=== PATIENT | female | born 1980 | race Caucasian/White ===

== ENCOUNTER 2023-02-21 19:09 | Inpatient (IN) | payer SELFPAY ==
[2023-02-21 19:25] VITALS: BP 166/82; PULSE 109; RESP 22; TEMP 36.9; O2SAT 88; BMI 62.1
--- NOTE | 2023-02-21 19:34 | ED_ITS ---
HPI - SOB/Dyspnea 2 General: Chief Complaint: Shortness of Breath/Dyspnea Stated Complaint: sob, Time Seen by Provider: 02/21/23 19:30 History of Present Illness: HPI Narrative: 43-year-old female who present s emergency room with shortness of breath for the past 4 weeks. Patient reveals that she is a smoker and smokes about a pack a day. Reveals increased shortness of breath with laying flat, walking, going up the steps. Patient reveals some dry cough denies coughing up blood or vomiting blood. Patient has any history of CHF, COPD, fever, chills, nausea or vomiting. Upon present emergency room patient was found with hypoxic satting 88% on room air. Patient revealed some chest tightness but denies any sick contact or recent foreign travel. Associated symptoms: Reports chest pain and orthopnea; Deny abdominal pain, dizziness, fever(s), hemoptysis, nausea, palpitations or vomiting Review of Systems 2 General: Reports: 10 or more systems reviewed and unremarkable except in HPI and below Const: Reports: change in sleep pattern and snoring; Denies: fever(s), chills, body aches or change in appetite Card: Reports: chest pain, dyspnea on exertion and orthopnea; Denies: palpitations Resp: Reports: dyspnea and non-productive cough; Denies: wheezing, stridor, pain on inspiration, change in phlegm color or hemoptysis GI: Denies: abdominal pain, nausea, vomiting, hematemesis, coffee ground emesis or dysphagia : Denies: flank pain, difficulty voiding or dysuria Neuro: Denies: headache(s), numbness in extremities, sensory changes, lack of coordination, difficulty walking, dizziness or vertigo Physical Exam 2 Const: COMMON NORMALS: no acute distress and patient oriented x3 GENERAL APPEARANCE: not in distress, not disheveled, not lethargic, not ill appearing and not frail appearing NUTRITIONAL APPEARANCE: obese O RIENTATION/CONSCIOUSNESS: not lethargic HENMT: COMMON NORMALS: normocephalic, atraumatic, hearing grossly normal bilaterally, external ears normal, EAC's normal, TM's normal bilaterally, Normal external nose present, Normal nasal mucous membranes and turbinates present, moist oral mucous membranes, oropharynx normal, dentition normal and gingiva normal HEAD & SCALP: normocephalic and atraumatic NOSE: Normal external nose present and Normal nasal mucous membranes and turbinates present E XTERNAL EAR: Yes external ears normal EXTERNAL AUDITORY CANAL: EAC's normal TYMPANIC MEMBRANE: TM's normal bilaterally Neck/C-Spine: COMMON NORMALS: full ROM, no lymphadenopathy, supple, no meningeal signs, no JVD, Thyroid normal and No carotid bruits THYROID: T hyroid normal Chest: COMMONS NORMALS: normal inspection of the chest, normal palpation of entire chest wall, normal inspection of the breasts and normal palpation of the breasts CHEST: No Sternal flail present, No mass, No sinus tracts, No tenderness, No laceration and No abrasion Breast/axilla inspection: Yes normal inspection of the breasts BREAST/AXILLA PALPATION: Yes normal palpation of the breasts Resp: EFFORT & INSPECTION: Yes able to speak in complete sentences, Yes respiratory distress, No pursed lip breathing, No labored, No grunting, No stridor, No Actively coughing, No retractions and No uses accessory muscles A USCULTATION: wheezes and diminished lung sounds Cardio: COMMON NORMALS: no JVD, regular rate, regular rhythm, S1 normal heart sound present, S2 normal heart sound present, No gallops present (Cardio), No clicks present (Cardio), No murmurs present (Cardio), No rub (Cardio) and Peripheral pulses 2+ throughout RATE: regular rate and tachycardic RHYTHM: regular rhythm HEART SOUNDS: S1 normal heart sound present and S2 normal heart sound present PERIPHERAL PULSES: Peripheral pulses 2+ throughout Extremity: OTHER: Trace edema lower extremities calf tenderness Neuro: COMMON NORMALS: patient oriented x3 SENSORIUM/ORIENTATION: No lethargic MENINGEAL SIGNS: Yes no meningeal signs Course 2 Reevaluation(s): Reevaluation #1: Upon reassessment patient improved significantly with current treatment. Consultations: Consultation #1: I discussed patient with the hospitalist. Patient admitted for further evaluation and treatment. Vital Signs: Vital signs: Vital Signs Temperature 98.2 F 02/22/23 03:42 Pulse Rate 89 02/22/23 03:42 Respiratory Rate 17 02/22/23 03:42 Blood Pressure 150/70 02/22/23 03:42 Pulse Oximetry 93 02/22/23 03:42 Oxygen Delivery Me thod Heated High Flow 02/22/23 03:42 Oxygen Flow Rate 6 02/22/23 03:42 Fraction of Inspir ed Oxygen 5 02/21/23 21:58 MDM - SOB/Dyspnea Medical Decision Making Patient was made comfortable emergency room and had extensive workup with CBC, CMP, troponin, D-dimer chest x-ray CT scan EKG. Discussed the x-ray and lab finding with the patient. Patient did improve slightly with current treatment which included oxygen by nasal cannula, steroid, Lasix and IV antibiotics. I discussed patient with the hospitalist. Will admit for further evaluation and treatment. I discussed care and treatment with daughter at bedside. Differential Diagnosis Likely acute exacerbation of chronic obstructive airways disease, congestive heart failure, community acquired pneumonia, asthma with exacerbation and pulmonary embolism Lab Data 02/22/23 01:40 02/22/23 01:40 Labs/Radiology: Radiology Impressions Chest X-Ray 02/21/23 19:35 IMPRESSION: 1. Diffuse ground-glass opacities suspected in both lungs. This could represent pulmonary edema, pneumonia, or hypersensitivity pneumonitis. Chest CTA 02/21/23 20:28 IMPRESSION: 1. No evidence for pulmonary embolus. 2. Mild diffuse ground-glass opacities in both lungs. This could represent pulmonary edema, atypical pneumonia, or hypersensitivity pneumonitis. 3. 2.9 cm indeterminate low-density left adrenal nodule. Non-emergent adrenal CT is recommended. (Reference: Kee) References: Kee BECKER, et al. Management of Incidental Adrenal Masses: A White Paper of the ACR Incidental Findings Committee. J Am Jessenia Radiol. 2017;14(8):1183-7809. Laboratory Results WBC 9.75 10^3/uL (3.29-11.43) 02/21/23 19:30 RBC 5.51 10^6/uL (3.85-5.65) 02/21/23 19:30 Hgb 17.60 g/dL (11.27-16.99) H 02/21/23 19:30 Hct 55.0 % (36-47) H 02/21/23 19:30 MCV 99.8 fl (85-98) H 02/21/23 19:30 MCH 31.9 pg (27-33) 02/21/23 19:30 MCHC 32.0 g/dL (30-55) 02/21/23 19:30 RDW 15.7 % (12.1-15.1) H 02/21/23 19:30 Plt Count 292 10^3/cmm (157-399) 02/21/23 19:30 MPV 9.5 fL (7.4-10.4) 02/21/23 19:30 Neut % (Auto) 78.3 % 02/21/23 19:30 Lymph % (Auto) 15.0 % 02/21/23 19:30 [place] % (Auto) 4.7 % 02/21/23 19:30 Eos % (Auto) 1.2 % 02/21/23 19:30 Baso % (Auto) 0.3 % 02/21/23 19:30 Neut # (Auto) 7.63 10^3/uL (1.8-7.7) 02/21/23 19:30 Lymph # (Auto) 1.5 10^3/uL (0.8-4.8) 02/21/23 19:30 [place] # (Auto) 0.5 10^3/uL (0.2-0.9) 02/21/23 19:30 Eos # (Auto) 0.1 10^3/uL (0.0-0.8) 02/21/23 19:30 Baso # (Auto) 0.0 10^3/uL (0.0-0.1) 02/21/23 19: Nucleated RBC % (auto) 0.2 % 02/21/23 19: Nucleated RBCs # 0.0 /100WBC 02/21/23 19:30 Specimen Type Arterial 02/21/23 19:35 Sample Site Radial, right 02/21/23 19:35 ABG pH 7.43 (7.35-7.45) 02/21/23 19:35 ABG pCO2 48.1 mmHg (35-45) H 02/21/23 19:35 ABG pO2 46.7 mmHg (80.0-100.0) L 02/21/23 19:35 ABG HCO3 32.2 mmol/L (22-26) H 02/21/23 19:35 ABG Base Excess 6.4 mmol/L (-2.0-2.0) H 02/21/23 19:35 Noel Test Pos 02/21/23 19:35 Hematocrit 52.1 % (37-47) H 02/21/23 19:35 Hgb O2 Saturation 77.3 % (95-100) L 02/21/23 19:35 Carboxyhemoglobin 11.9 %THgb (0.4-20.1) 02/21/23 19:35 Methemoglobin 0.1 % (0.4-1.5) L 02/21/23 19:35 Total Hemoglobin 17.0 g/dL (12-16) H 02/21/23 19:35 O2 Delivery Device Room air 02/21/23 19:35 Trauma Counsellor ID [email or web address] 02/21/23 19:35 Sodium 139 mmol/L (136-145) 02/21/23 19:30 Potassium 4.6 mmol/L (3.5-5.1) 02/21/23 19:30 Chloride 98 mmol/L (98-107) 02/21/23 19:30 Carbon Dioxide 30 mmol/L (22-29) H 02/21/23 19:30 Anion Gap 15.6 (5-19) 02/21/23 19:30 BUN 7 mg/dL (6-20) 02/21/23 19:30 Creatinine 0.8 mg/dL (0.5-0.9) 02/21/23 19:30 GFR Calculation 77.6 mL/min (90-130) L 02/21/23 19:30 Glucose 109 mg/dL (65-115) 02/21/23 19:30 Calculated Osmolality 287 mOsm/kg (285-295) 02/21/23 19:30 Calcium 9.0 mg/dL (8.5-10.5) 02/21/23 19:30 Total Bilirubin 0.4 mg/dL (0.15-1.2) 02/21/23 19:30 AST 26 U/L (0-32) 02/21/23 19:30 ALT 40 U/L (0-33) H 02/21/23 19:30 Alkaline Phosphatase 127 U/L (35-105) H 02/21/23 19:30 Troponin T Baseline 11 ng/L (0-10) H 02/21/23 19:30 Troponin T 120 Minute 11.19 ng/L (0-10) H 02/21/23 21:25 Delta Troponin T 0.19 ABS# (0-10) 02/21/23 21:25 NT-Pro-B Natriuret Pep 196 pg/mL (0-125) H 02/21/23 19:30 Total Protein 6.6 g/dL (6.6-8.7) 02/21/23 19:30 Albumin 3.5 g/dL (3.5-5.2) 02/21/23 19:30 Globulin 3.1 g/dL (1.3-4.6) 02/21/23 19:30 Random Cortisol 12.73 ug/dL (2.47-19.5) 02/21/23 19:30 Coronavirus 229E (PCR) Not detected (NOT DETECT) 02/21/23 22:14 SARS-CoV-2 (PCR) Not detected (NOT DETECT) 02/21/23 22:14 XR interpretation done by ED provider, pending radiology final review EKG Data EKG 1: Interpretation: Sinus tachycardia rate of 101 AL interval 161 QT [address] elevation. Nonspecific ST changes. ABG Data ABG Interpretation 1: ABG results: pH 7.4 pCO2 48.1, pO2 46.7 I personally reviewed and interpreted this ABG as follows: Critical Care Time 2 Critical Care Time: Critical Care Time: Yes Total Critical Care Time: 45 Attestation: Time spent discussing patient with the family, discussed patient with the hospitalist. Time spent reevaluating patient on multiple occasion after treatment. Time spent reviewing past medical history and records. Discharge Plan Discharge Patient Disposition: Admitted As Inpatient Admit Provider: Bettina Cleary Clinical Impression: Hypoxia, Pneumonitis Condition: Stable Coding Level of Care Code ED Freight Service Inspector for Chg Fwsammie
--- NOTE | 2023-02-21 19:35 | XRR_ITS ---
PROCEDURE INFORMATION: Exam: XR Chest Exam date and time: 02/21/2023 7:42 PM Age: 43 years old Clinical indication: Shortness of breath; Additional info: As of breath TECHNIQUE: Imaging protocol: Radiologic exam of the chest. Views: 1 view. COMPARISON: No relevant prior studies available. FINDINGS: Lungs: Diffuse ground-glass opacities suspected in both lungs. The images are underpenetrated due to the patient's large body habitus. Pleural spaces: Unremarkable. No pleural effusion. No pneumothorax. Heart/Mediastinum: Mild cardiomegaly. Bones/joints: Unremarkable. XR/XR chest 1V portable [id number] IMPRESSION: 1. Diffuse ground-glass opacities suspected in both lungs. This could represent pulmonary edema, pneumonia, or hypersensitivity pneumonitis.
[2023-02-21 19:43] LABS: ABG PCO2 48.1 mmHg (35-45); ABG PH Result 7.43 (7.35-7.45); Arterial Blood Gas Hematocrit 52.1 % (37-47); Base Excess ABG 6.4 mmol/L (-2.0-2.0); Blood Gas Allen Test Pos; Blood Gas Sample Site Radial, right; Blood Gas Sample Type Arterial; Carboxyhemoglobin 11.9 %THgb (0.4-20.1); HCO3 ABG 32.2 mmol/L (22-26); HGB O2 Sat 77.3 % (95-100); Methemoglobin 0.1 % (0.4-1.5); Oxygen Device ROOM AIR; PO2 ABG 46.7 mmHg (80.0-100.0)
[2023-02-21 19:52] LABS: Basophils % 0.3 %; Eosinophils # 0.1 10^3/uL (0.0-0.8); Eosinophils % 1.2 %; Lymphocytes # 1.5 10^3/uL (0.8-4.8); Mean Corpuscular Hemoglobin 31.9 pg (27-33); Mean Corpuscular Volume 99.8 fl (85-98); Mean Platelet Volume 9.5 fL (7.4-10.4); Monocytes # 0.5 10^3/uL (0.2-0.9); Monocytes % 4.7 %; Neutrophils # 7.63 10^3/uL (1.8-7.7); Neutrophils % 78.3 %; Nucleated Red Blood Cells % 0.2 %; Platelet Count 292 10^3/cmm (157-399); Red Blood Count 5.51 10^6/uL (3.85-5.65); Red Cell Distribution Width 15.7 % (12.1-15.1); White Blood Count 9.75 10^3/uL (3.29-11.43)
[2023-02-21] MEDS: FUROsemide 10 mg/mL SDV 4mL 40 MG IVP (19:54)
[2023-02-21] MEDS: methylPREDNISolone sod succ 125 mg/2 mL INJ 80 MG IV (19:54)
[2023-02-21 20:03] LABS: Troponin(5th) Baseline 11 ng/L (0-10)
[2023-02-21 20:13] LABS: Alanine Aminotransferase 40 U/L (0-33); Albumin Level 3.5 g/dL (3.5-5.2); Alkaline Phosphatase 127 U/L (35-105); Anion Gap 15.6 (5-19); Aspartate Amino Transferase 26 U/L (0-32); Blood Urea Nitrogen 7 mg/dL (6-20); Carbon Dioxide 30 mmol/L (22-29); Chloride 98 mmol/L (98-107); Globulin 3.1 g/dL (1.3-4.6); Glomerular Filtration Rate 77.6 mL/min (90-130); Glucose 109 mg/dL (65-115); NT Pro B Type Natriuretic Pept 196 pg/mL (0-125); Osmolality Calculated 287 mOsm/kg (285-295); Potassium 4.6 mmol/L (3.5-5.1); Sodium 139 mmol/L (136-145); Total Bilirubin 0.4 mg/dL (0.15-1.2); Total Protein 6.6 g/dL (6.6-8.7)
--- NOTE | 2023-02-21 20:28 | CTR_ITS ---
PROCEDURE INFORMATION: Exam: CTA Chest With Contrast Exam date and time: 02/21/2023 9:42 PM Age: 43 years old Clinical indication: Shortness of breath; Additional info: SOB TECHNIQUE: Imaging protocol: Computed tomographic angiography of the chest with contrast. Exam focused on the arteries. 3D rendering (Not supervised by radiologist): MIP and/or 3D reconstructed images were created by the technologist. Radiation optimization: All CT scans at this facility use at least one of these dose optimization techniques: automated exposure control; mA and/or kV adjustment per patient size (includes targeted exams where dose is matched to clinical indication); or iterative reconstruction. Contrast material: OMNI 350; Contrast volume: 80 ml; Contrast route: INTRAVENOUS (IV); REPORTING DATA: Count of CT and Cardiac NM exams in prior 12 months: This patient has received 0 known CTs and 0 known cardiac nuclear medicine studies in the 12 months prior to the current study. COMPARISON: CR (CHEST, ) 02/21/2023 7:42 PM RADIATION DOSE METRICS: Total DLP (mGy-cm): 534 FINDINGS: Pulmonary arteries: Normal. No pulmonary emboli. Aorta: Unremarkable. No aortic aneurysm. No aortic dissection. Lungs: Diffuse mild patchy ground-glass opacities throughout both lungs. Mild atelectasis in the right middle lobe and left lower lobe. The lungs are otherwise clear Pleural spaces: Unremarkable. No pneumothorax. No pleural effusion. Heart: Trace pericardial effusion. Lymph nodes: Prominent mediastinal and hilar lymph nodes are most likely reactive. Liver: Diffuse fatty infiltration in the liver. Hepatomegaly. Adrenal glands: 2.9 cm left adrenal nodule, 27 Hounsfield units. The right adrenal is normal. Bones/joints: Degenerative changes of the spine. No acute fracture. Soft tissues: 2.0 cm subcutaneous sebaceous cyst in the posterior midline thorax. CT/CT angio chest PE protcl [id number] IMPRESSION: 1. No evidence for pulmonary embolus. 2. Mild diffuse ground-glass opacities in both lungs. This could represent pulmonary edema, atypical pneumonia, or hypersensitivity pneumonitis. 3. 2.9 cm indeterminate low-density left adrenal nodule. Non-emergent adrenal CT is recommended. (Reference: Kee) References: Kee BECKER et al. Management of Incidental Adrenal Masses: A White Paper of the ACR Incidental Findings Committee. J Am Jessenia Radiol. 2017;14(8):2404-3316.
--- NOTE | 2023-02-21 20:52 | ECG_ITS ---
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 Measurements Intervals [place] Rate: 100 P: 40 NE: 161 QRS: -27 QRSD: 74 T: 43 QT: 349 QTc: 451 Interpretive Statements SINUS TACHYCARDIA LEFT ATRIAL ENLARGEMENT [-0.15mV P-WAVE IN V1/V2] BORDERLINE LEFT AXIS DEVIATION [QRS AXIS < -20] No previous ECG available for comparison Electronically Signed On 02-22-2023 7:09:24 USER EXPERIENCE TEAM LEAD by Kehinde Sanford M.D. [id number]
[2023-02-21 21:55] LABS: Troponin 5 2HR 11.19 ng/L (0-10); Troponin 5 2HR Delta 0.19 ABS# (0-10)
[2023-02-21 21:58] VITALS: PULSE 103; RESP 20; O2SAT 90
[2023-02-21] MEDS: ipratropium-albuterol 3 mL Neb INHALATION (21:58)
[2023-02-21 22:00] VITALS: PULSE 102
[2023-02-21] MEDS: iohexol 350 mg/mL 500 mL Btl (per mL) IV (22:10)
[2023-02-21] MEDS: levofloxacin-dextrose 5 % 500 MG/100 ML PREMIX 100 MG IV (23:25)
[2023-02-21 23:30] VITALS: BP 167/106; PULSE 80; RESP 16; O2SAT 92
--- NOTE | 2023-02-21 23:47 | P.HP_ITS ---
Providers/Chief Complaint 2 Primary Care Provider: Robert Mix MD Chief Complaint: sob, History of Present Illness Hannah Albert is a 43 year old female with no known significant past medical history who presents to the emergency room with shortness of breath. Patient states that her symptoms started several months ago but over the past month have been progressively worsening. She states that she is dyspneic with minimal exertion, cannot walk from her bed to the doorway without getting short of breath. She denies any chest pain. She has longstanding chronic lower extremity edema for the past 19 years which appears to have worsened recently. She has been diagnosed with possible lymphedema and is supposed to wear compression stockings but it is hard for her to get those on therefore she does not wear it most of the times. She denies any cough or expectoration. Denies any recent fevers. She states that about a month ago she checked her oxygen saturations at work and this was 88% at rest. She estimates that she has been hypoxic much longer. She has daytime somnolence and frequent episodes of noisy breathing at night. She presents to the ER today as her family members noticed that she is getting much worse over the past month and has agreed to come in for evaluation. States that she did not get any evaluation for her chronic symptoms previously due to lack of insurance and difficulty affording care. Upon ER arrival she was noted to be hypoxic. ABG shows hypoxic hypercapnic respiratory failure which is currently well compensated, likely to be chronic in nature. CTA chest is negative for PE but shows B/L diffuse GGOs. She has not had any recent sick contacts. No recent history of travel. She has no known diagnosed history of COPD or emphysema. She is a daily smoker since the age of 14. She also vapes approximately twice a day. She has never needed inhalers before. Review of Systems 2 General: Reports: 10 or more systems reviewed and unremarkable except in HPI and below Const: Denies: fever(s), chills or body aches Eyes: Denies: change in vision, blurry vision or photophobia ENMT: Reports: hoarseness; Denies: throat pain, enlarged tonsils, odynophagia or nasal congestion Card: Denies: chest pain, palpitations, irregular heart rhythm, edema, swelling of feet/ankles, lightheadedness, pre-syncope, dyspnea on exertion or orthopnea Resp: Denies: dyspnea, productive cough, non-productive cough, wheezing, stridor, pain on inspiration, change in phlegm color, hemoptysis or chest congestion GI: Denies: abdominal pain, nausea, vomiting, hematemesis, coffee ground emesis, dysphagia, heartburn, diarrhea, constipation, GI cramping, change in stool character, hematochezia or melena : Denies: flank pain, difficulty voiding, dysuria, urinary frequency, urinary urgency, urinary hesitancy or hematuria Musc: Denies: neck pain, back pain, extremity pain, joint swelling, joint warmth or deformity Neuro: Denies: headache(s), numbness in extremities, weakness in extremities, sensory changes, difficulty walking, frequent falls, dizziness, vertigo, behavioral changes, Slurred speech present or seizure-like activity Psych: Denies: anxiety, depression, suicidal ideation or homicidal ideation Endo: Denies: polyuria, polydipsia, tired all the time, cold intolerance or hot flashes Jonnathan/Lymph: Denies: easy bruising or easy bleeding Medications/Allergies Allergies Allergy/AdvReac Type Severity Reaction Status Date / Time No Known Allergies Allergy Verified 02/21/23 19:19 Vitals/I&O/Wt Last Vital Signs Temp 98.4 F 02/21/23 19:25 Pulse 80 02/21/23 23:30 Resp 16 02/21/23 23:30 BP 167/106 02/21/23 23:30 Pulse Ox 92 02/21/23 23:30 O2 Del Method Nasal Cannula 02/21/23 23:30 O2 Flow Rate 3 02/21/23 23:30 FiO2 5 02/21/23 21:58 Weight last 48 hrs Weight 134.989 kg Physical Exam 2 Narrative: General: No acute distress, AO x3 HEENT: PERRLA, pupils bilaterally equal and reactive, pallors not present Chest: Wheezing to auscultation B/L CVS: S1-S2 regular, no murmurs, no tachycardia, no gallops, no rubs Abdomen: Soft, nontender, no organomegaly, bowel sounds present Neuro: No focal deficits, no facial deformity, AO x3, power 5/5 in all limbs Data 02/22/23 01:40 02/22/23 01:40 Other Labs: [employer] [address] [address] [address] Scan Report Signed Patient: Hannah Albert Unit #: [id number] : 1980 [place] Llct#:[id number] Age/Sex: 43 / F ADM Date: 02/21/23 Loc: ER Room/Bed: Attending Dr: Ordering Provider/Ordering MD: Vinay Morales MD Date of Service: 02/21/23 Procedure(s): CT angio chest PE prot [id number] Accession Number(s): [id number] Report Number: [id number] PROCEDURE INFORMATION: Exam: CTA Chest With Contrast Exam date and time: 02/21/2023 9:42 PM Age: 43 years old Clinical indication: Shortness of breath; Additional info: SOB TECHNIQUE: Imaging protocol: Computed tomographic angiography of the chest with contrast. Exam focused on the arteries. 3D rendering (Not supervised by radiologist): MIP and/or 3D reconstructed images were created by the technologist. Radiation optimization: All CT scans at this facility use at least one of these dose optimization techniques: automated exposure control; mA and/or kV adjustment per patient size (includes targeted exams where dose is matched to clinical indication); or iterative reconstruction. Contrast material: OMNI 350; Contrast volume: 80 ml; Contrast route: INTRAVENOUS (IV); REPORTING DATA: Count of CT and Cardiac NM exams in prior 12 months: This patient has received 0 known CTs and 0 known cardiac nuclear medicine studies in the 12 months prior to the current study. COMPARISON: CR (CHEST, ) 02/21/2023 7:42 PM RADIATION DOSE METRICS: Total DLP (mGy-cm): 534 FINDINGS: Pulmonary arteries: Normal. No pulmonary emboli. Aorta: Unremarkable. No aortic aneurysm. No aortic dissection. Lungs: Diffuse mild patchy ground-glass opacities throughout both lungs. Mild atelectasis in the right middle lobe and left lower lobe. The lungs are otherwise clear Pleural spaces: Unremarkable. No pneumothorax. No pleural effusion. Heart: Trace pericardial effusion. Lymph nodes: Prominent mediastinal and hilar lymph nodes are most likely reactive. Liver: Diffuse fatty infiltration in the liver. Hepatomegaly. Adrenal glands: 2.9 cm left adrenal nodule, 27 Hounsfield units. The right adrenal is normal. Bones/joints: Degenerative changes of the spine. No acute fracture. Soft tissues: 2.0 cm subcutaneous sebaceous cyst in the posterior midline thorax. CT/CT angio chest PE protcl [id number] IMPRESSION: 1. No evidence for pulmonary embolus. 2. Mild diffuse ground-glass opacities in both lungs. This could represent pulmonary edema, atypical pneumonia, or hypersensitivity pneumonitis. 3. 2.9 cm indeterminate low-density left adrenal nodule. Non-emergent adrenal CT is recommended. (Reference: [facility]) ABG Interpretation 1: 02/21/23 19:35 ABG pH 7.43 ABG pCO2 48.1 H ABG pO2 46.7 L ABG HCO3 32.2 H ABG Base Excess 6.4 H A&P Assessment and plan (1) Hypoxia: (2) Pneumonitis: (3) Hypercapnic respiratory failure, chronic: Plan 43-year-old lady presented to the emergency room with worsening dyspnea over the past few months, more acutely worsened over the past 1 week. Brought to the emergency room today due to worsening noted by her family. She has evidence of hypoxia, pO2 46.7 on room air, currently needing between 3 to 5 L/min supplemental oxygen. She is previously not on oxygen. ABG also shows evidence of hypercapnia, elevated bicarbonate, and a normal pH which seems to suggest that her hypoxic hypercapnic respiratory failure may be from a more chronic process. CTA negative for PE. Shows bilateral diffuse GGO's which are nonspecific. Differentials at this point in time include possibly newly diagnosed COPD however will need outpatient PFTs to confirm. Currently has wheezing on exam which may be reflective of acute on chronic COPD exacerbation. Alternate possibilities are pneumonitis, perhaps viral, check COVID PCR. Patient is a chronic daily smoker and also vapes, could be hypersensitivity pneumonitis. Start DuoNeb nebulization every 6 hours and budesonide 0.5 mg twice daily. Start methylprednisolone 40 mg IV every 8 hours for possibility of hypersensitivity pneumonitis and also COPD exacerbation Levofloxacin 750 mg p.o. daily for possibility of atypical pneumonia as a cause of her acute decompensation. Check Pro-Christo May have obesity hypoventilation BMI currently 61, reported history of daytime somnolence and episodes of noisy breathing at nighttime. May benefit from outpatient sleep study. LE non pitting edema, patient reports this has been chronic for several years. EKG shows sinus tachycardia at 100bpm, no ST-T wave changes. Check echocardiogram to evaluate for possible CHF contributing. She has received lasix 40mg iv x 1 in the ER, further doses dependnt on urine output, echocardiogram repeat kidney function Check TSH and random cortisol Dvt ppx: lovenox Full code Attestations 2 Medical Necessity Statement*: > 2 midnight admission is anticipated for above defined care Coding Level of Care Code Acute Code for Chg Fwd High MDM includes number and complexity of problems actively addressed during encounter, amount and/or complexity of data reviewed/ordered and described risk of complication, morbidity or mortality of management as documented Diagnoses Hypoxia R09.02 Pneumonitis J98.4 Hypercapnic respiratory failure, chronic J96.12
[2023-02-21 23:59] LABS: Adenovirus Not Detected (NOT DETECT); Chlamydia Pneumoniae Not Detected (NOT DETECT); Coronavirus 229E,HKU1,NL63,OC4 Not Detected (NOT DETECT); Human Metapneumovirus Not Detected (NOT DETECT); Human Rhinovirus/Enterovirus Not Detected (NOT DETECT); Influenza A Not Detected (NOT DETECT); Influenza A H1 Not Detected (NOT DETECT); Influenza A H1-2009 Not Detected (NOT DETECT); Influenza A H3 Not Detected (NOT DETECT); Influenza B Not Detected (NOT DETECT); Mycoplasma Pneumoniae Not Detected (NOT DETECT); Parainfluenza Virus Type 1 Not Detected (NOT DETECT); Parainfluenza Virus Type 2 Not Detected (NOT DETECT); Parainfluenza Virus Type 3 Not Detected (NOT DETECT); Parainfluenza Virus Type 4 Not Detected (NOT DETECT); Respiratory Syncytial Virus A Not Detected (NOT DETECT); Respiratory Syncytial Virus B Not Detected (NOT DETECT); SARS-COV-2 Not Detected (NOT DETECT)
[2023-02-22] VITALS (15 sets, daily range): BP systolic 123–167; BP diastolic 67–106; PULSE 72–110; RESP 16–22; TEMP 36.6–36.9; O2SAT 80–95; BMI 62.1
[2023-02-22 00:47] LABS: Cortisol Random 12.73 ug/dL (2.47-19.5)
--- NOTE | 2023-02-22 00:58 | USCV_ITS ---
Hannah Howard Age: 43 Gender: F : 1980 Exam Date: 02/22/2023 01:19 Ordering Phys: Bettina Cleary MD Technologist: STEVE Exam Location: [facility] [place] Indication: SOB, hypoxia 88% on room air in ER, morbid obesity, tobacco addiction. No hx of cardiac intervention per patient. BP: 167 / 106 HR: 92 Rhythm: Sinus Technical Quality: Adequate MEASUREMENTS (Male / Female) Normal Values 2D ECHO LV Diastolic Diameter PLAX 5.0 cm 4.2 - 5.9 / 3.9 - 5.3 cm LV Systolic Diameter PLAX 3.2 cm IVS Diastolic Thickness 1.6 cm 0.6 - 1.0 / 0.6 - 0.9 cm IVS Systolic Thickness 2.0 cm LVPW Diastolic Thickness 1.4 cm 0.6 - 1.0 / 0.6 - 0.9 cm LVPW Systolic Thickness 1.9 cm LVOT Diameter 1.8 cm LV Ejection Fraction 2D Teich 66.7 % LV Ejection Fraction MOD 2C 69.6 % LV Ejection Fraction 2C AL 72.2 % LA Diameter 4.1 cm LA Width 4.6 cm LA Height 4.4 cm RA Width 3.3 cm RA Height 4.6 cm Aorta at Sinotubular Diameter 2.4 cm IVC Diameter 1.9 cm M-MODE Aortic Annulus Diameter 2.6 cm LA Ao Ratio MM 1.6 MV E Point Septal Separation 0.4 cm DOPPLER AV Peak Velocity 134.0 cm/s LVOT Peak Velocity 108.0 cm/s AV Area Cont Eq vti 2.2 cm squared AV Area Cont Eq pk 2.0 cm squared MV Area PHT 2.8 cm squared Mitral E to A Ratio 0.9 MV E' Velocity 44.5 cm/s Mitral E to MV E' Ratio 11.1 Mitral E to LV E' Lateral Ratio 13.4 Mitral E to LV E' Septal Ratio 9.5 TV Peak E Velocity 37.0 cm/s PV Peak Velocity 106.0 cm/s RV Acceleration Time 0.1 s RV Ejection Time 0.3 s RV AcT/ET 0.2 FINDINGS Left Ventricle Technically limited quality echocardiogram because of poor ultrasonic windows. Left ventricle is normal in size. LV systolic function is normal with EF of 60 to 65%. No regional wall motion abnormalities are seen. Right Ventricle Normal in size and function Right Atrium Normal in size Left Atrium Dilated Mitral Valve Structurally normal mitral valve. Aortic Valve Grossly normal aortic valve. No significant stenosis or regurgitation Tricuspid Valve Not well-visualized Pulmonic Valve Not well visualized Pericardium Normal Aorta Normal in size IVC Appears to be normal CONCLUSIONS Technically limited quality echocardiogram because of poor ultrasonic windows. LV systolic function is normal with EF of 60 to 65%. Left atrial dilation. No comparison studies are available Kehinde Sanford MD (Electronically Signed) Final Date: 22 February 2023 12:19 S
[2023-02-22 01:51] LABS: Basophils % 0.2 %; Eosinophils % 0.1 %; Hematocrit 54.9 % (36-47); Lymphocytes # 0.5 10^3/uL (0.8-4.8); Lymphocytes % 4.4 %; Mean Corpuscular HGB Conc 31.7 g/dL (30-55); Mean Corpuscular Hemoglobin 31.5 pg (27-33); Mean Corpuscular Volume 99.3 fl (85-98); Mean Platelet Volume 9.3 fL (7.4-10.4); Monocytes # 0.1 10^3/uL (0.2-0.9); Monocytes % 0.8 %; Neutrophils # 10.36 10^3/uL (1.8-7.7); Neutrophils % 93.9 %; Nucleated Red Blood Cells % 0.2 %; Platelet Count 255 10^3/cmm (157-399); Red Blood Count 5.53 10^6/uL (3.85-5.65); Red Cell Distribution Width 15.4 % (12.1-15.1); White Blood Count 11.03 10^3/uL (3.29-11.43)
[2023-02-22] MEDS: ipratropium-albuterol 3 mL Neb INHALATION ×4 (02:15→20:09)
[2023-02-22 02:16] LABS: Troponin 5 6HR 7.98 ng/L (0-10)
[2023-02-22 02:17] LABS: Troponin 5 6HR Delta -3.02 ng/L (0-12)
[2023-02-22 02:25] LABS: Alanine Aminotransferase 38 U/L (0-33); Albumin Level 3.4 g/dL (3.5-5.2); Alkaline Phosphatase 123 U/L (35-105); Anion Gap 14.8 (5-19); Aspartate Amino Transferase 24 U/L (0-32); Blood Urea Nitrogen 8 mg/dL (6-20); Carbon Dioxide 30 mmol/L (22-29); Chloride 99 mmol/L (98-107); Globulin 3.8 g/dL (1.3-4.6); Glomerular Filtration Rate 90.5 mL/min (90-130); Glucose 150 mg/dL (65-115); Osmolality Calculated 289 mOsm/kg (285-295); Potassium 4.8 mmol/L (3.5-5.1); Sodium 139 mmol/L (136-145); Thyroid Stimulating Hormone 0.89 uIU/mL (0.27-4.20); Total Bilirubin 0.3 mg/dL (0.15-1.2); Total Protein 7.2 g/dL (6.6-8.7)
[2023-02-22 02:26] LABS: Procalcitonin 0.11 ng/mL (0-0.5)
[2023-02-22] MEDS: methylPREDNISolone sod succ 40 MG in water for injection-sterile 1 ML 12 MG IVP (03:01)
[2023-02-22] MEDS: amlodipine 5 mg Tablet PO ×2 (05:51→08:52)
[2023-02-22] MEDS: enoxaparin 40 mg/0.4 mL Syringe SUBCUT (06:55)
[2023-02-22 07:03] LABS: Estmated Average Glucose 123; Hemoglobin A1C 5.9 % (4.0-6.0)
[2023-02-22] MEDS: budesonide 0.5 mg/2 mL Neb INHALATION ×2 (08:24→20:09)
[2023-02-22] MEDS: FUROsemide 20 mg Tablet PO (08:52)
[2023-02-22] MEDS: pantoprazole DR 40 mg Tablet PO (08:52)
[2023-02-22] MEDS: methylPREDNISolone sod succ 40 mg/mL INJ IVP ×2 (10:37→18:37)
--- NOTE | 2023-02-22 13:35 | P.PN_ITS ---
Subjective 2 Subjective: Patient was seen this morning, she does report shortness of breath is sitting in a chair, is on 6 L, does not use oxygen at home, no history of sleep apnea, she wants to go home, she tells me that she does not have insurance to pay for this hospital stay, she does not know how she is can to pay for the oxygen, I empathized with her financial issues however she is requiring 6 L, she has evidence of significant hypoxic respiratory failure, I discussed morbidity and mortality associated with leaving the hospital preemptively, AGAINST MEDICAL ADVICE, she voiced understanding, all questions answered, agreed to stay in the hospital for another day, I cannot guarantee her that her oxygen requirements will decrease tomorrow, but she does need another day of antibiotics steroids and close monitoring, she is agreeable, Vitals/I&O/Wt Last Vital Signs Temp 98 F 02/22/23 12:00 Pulse 81 02/22/23 12:00 Resp 17 02/22/23 12:00 BP 139/88 02/22/23 12:00 Pulse Ox 91 02/22/23 12:00 O2 Del Method High Flow Nasal Cannula 02/22/23 08:00 O2 Flow Rate 6 02/22/23 08:00 FiO2 5 02/21/23 21:58 02/21/23 02/22/23 02/22/23 22:59 06:59 14:59 Intake Total 100 / 100 1 / 1 Output Total 0 / 0 Balance 100 / 100 1 / 1 Weight last 48 hrs Weight 133.129 kg Weight 134.972 kg Weight 134.989 kg Physical Exam 2 Const: COMMON NORMALS: no acute distress and patient oriented x3 Resp: COMMON NORMALS: normal respiratory effort, No retractions, No use of accessory muscles and clear to auscultation bilaterally AUSCULTATION: clear to auscultation bilaterally Cardio: COMMON NORMALS: regular rate, regular rhythm, S1 normal heart sound present and S2 normal heart sound present RATE: regular rate RHYTHM: r egular rhythm HEART SOUNDS: S1 normal heart sound present and S2 normal heart sound present GI: COMMON NORMALS: Normal to inspection, nondistended, normoactive bowel sounds present and non-tender Extremity: COMMON NORMALS: no pedal edema Neuro: COMMON NORMALS: patient oriented x3 Psych: COMMON NORMALS: mental status grossly normal Data 02/22/23 01:40 02/22/23 01:40 A&P Assessment and plan (1) Hypoxia: (2) Pneumonitis: (3) Hypercapnic respiratory failure, chronic: Plan 43-year-old lady presented to the emergency room with worsening dyspnea over the past few months, more acutely worsened over the past 1 week. Brought to the emergency room today due to worsening noted by her family. She has evidence of hypoxia, pO2 46.7 on room air, currently on 6 L. She is previously not on oxygen. ABG also shows evidence of hypercapnia, elevated bicarbonate, and a normal pH which seems to suggest that her hypoxic hypercapnic respiratory failure may be from a more chronic process. CTA negative for PE. Shows bilateral diffuse GGO's which are nonspecific. Differentials at this point in time include possibly newly diagnosed COPD however will need outpatient PFTs to confirm. Currently has wheezing on exam which may be reflective of acute on chronic COPD exacerbation. Alternate possibilities are pneumonitis, perhaps viral, check COVID PCR. Patient is a chronic daily smoker and also vapes, could be hypersensitivity pneumonitis. Start DuoNeb nebulization every 6 hours and budesonide 0.5 mg twice daily. Start methylprednisolone 40 mg IV every 8 hours for possibility of hypersensitivity pneumonitis and also COPD exacerbation Levofloxacin 750 mg p.o. daily for possibility of atypical pneumonia as a cause of her acute decompensation. Check Pro-Christo which is 0.11 May have obesity hypoventilation BMI currently 61, reported history of daytime somnolence and episodes of noisy breathing at nighttime. May benefit from outpatient sleep study. Likely has component of obesity hypoventilation syndrome LE non pitting edema, patient reports this has been chronic for several years. EKG shows sinus tachycardia at 100bpm, no ST-T wave changes. Check echocardiogram to evaluate for possible CHF contributing. She has received lasix 40mg iv x 1 in the ER, further doses dependnt on urine output, echocardiogram repeat kidney function Dvt ppx: lovenox Full code Attestations 2 Medical Necessity Statement*: Patient requires hospitalization for hypoxic hypercapnic respiratory failure Diagnoses Hypoxia R09.02 Pneumonitis J98.4 Hypercapnic respiratory failure, chronic J96.12
[2023-02-22 17:53] LABS: Adenovirus Not Detected (NOT DETECT); Chlamydia Pneumoniae Not Detected (NOT DETECT); Coronavirus 229E,HKU1,NL63,OC4 Not Detected (NOT DETECT); Human Metapneumovirus Not Detected (NOT DETECT); Human Rhinovirus/Enterovirus Not Detected (NOT DETECT); Influenza A Not Detected (NOT DETECT); Influenza A H1 Not Detected (NOT DETECT); Influenza A H1-2009 Not Detected (NOT DETECT); Influenza A H3 Not Detected (NOT DETECT); Influenza B Not Detected (NOT DETECT); Mycoplasma Pneumoniae Not Detected (NOT DETECT); Parainfluenza Virus Type 1 Not Detected (NOT DETECT); Parainfluenza Virus Type 2 Not Detected (NOT DETECT); Parainfluenza Virus Type 3 Not Detected (NOT DETECT); Parainfluenza Virus Type 4 Not Detected (NOT DETECT); Respiratory Syncytial Virus A Not Detected (NOT DETECT); Respiratory Syncytial Virus B Not Detected (NOT DETECT); SARS-COV-2 Not Detected (NOT DETECT)
[2023-02-22] MEDS: levoFLOXacin 750 mg Tablet PO (20:21)
[2023-02-23] VITALS (10 sets, daily range): BP systolic 133–164; BP diastolic 78–89; PULSE 63–104; RESP 17–20; TEMP 36.5–36.7; O2SAT 87–98
[2023-02-23] MEDS: ipratropium-albuterol 3 mL Neb INHALATION ×3 (02:25→13:16)
[2023-02-23] MEDS: methylPREDNISolone sod succ 40 mg/mL INJ IVP ×2 (02:29→12:09)
[2023-02-23 05:54] LABS: Basophils % 0.1 %; Hematocrit 55.5 % (36-47); Lymphocytes # 0.7 10^3/uL (0.8-4.8); Lymphocytes % 4.8 %; Mean Corpuscular HGB Conc 30.5 g/dL (30-55); Mean Corpuscular Hemoglobin 31.3 pg (27-33); Mean Corpuscular Volume 102.8 fl (85-98); Mean Platelet Volume 9.7 fL (7.4-10.4); Monocytes # 0.8 10^3/uL (0.2-0.9); Monocytes % 5.5 %; Neutrophils # 13.29 10^3/uL (1.8-7.7); Neutrophils % 88.9 %; Nucleated Red Blood Cells % 0 %; Platelet Count 292 10^3/cmm (157-399); Red Cell Distribution Width 15.2 % (12.1-15.1); White Blood Count 14.97 10^3/uL (3.29-11.43)
[2023-02-23 06:07] LABS: Alanine Aminotransferase 43 U/L (0-33); Albumin Level 3.2 g/dL (3.5-5.2); Alkaline Phosphatase 100 U/L (35-105); Aspartate Amino Transferase 28 U/L (0-32); Blood Urea Nitrogen 16 mg/dL (6-20); Calcium 9.3 mg/dL (8.5-10.5); Carbon Dioxide 34 mmol/L (22-29); Chloride 100 mmol/L (98-107); Globulin 3.7 g/dL (1.3-4.6); Glomerular Filtration Rate 90.5 mL/min (90-130); Glucose 110 mg/dL (65-115); Osmolality Calculated 292 mOsm/kg (285-295); Sodium 140 mmol/L (136-145); Total Bilirubin 0.2 mg/dL (0.15-1.2); Total Protein 6.9 g/dL (6.6-8.7)
[2023-02-23] MEDS: enoxaparin 40 mg/0.4 mL Syringe SUBCUT (06:15)
[2023-02-23 06:24] LABS: HIV 1 & 2 Antibody Non-Reactive (Non-Reactiv); HIV 1 & 2 Antigen Non-Reactive (Non-Reactiv)
[2023-02-23] MEDS: budesonide 0.5 mg/2 mL Neb INHALATION (07:26)
--- NOTE | 2023-02-23 09:14 | PC.CHAP ---
Pastoral Care Encounter/Spiritual Assessment Type of Contact [] Declined trust manager assistant visit [] Patient/Family/Request visit [] Outpatient visit [] Follow-up visit [] Physician referral [] Code/Alert [x] Routine visit [] Staff referral [] Actively dying [] Patient sleeping [] Family support [] [] Out of room [] Palliative care [] [] Receiving care in room [] Pre-surgical visit [] Trauma [] Long length of stay [] ICU visit [] Other: Relational/Emotional Strength [x] Patient feels connected with others/family/visitors/staff [] Distress [] Loneliness/isolation [] Abandonment Spirituality of Patient [x] Person of Jennifer [] Attends Taoist of their Jennifer [x] Believes in Prayer [] Reads Bible or Advent materials [] There are Spiritual issues to be addressed Traffic Signal Mechanic Interventions [x] Prayer [] Active listening [] Non-anxious presence [x] Spiritual/emotional support [] Crisis/trauma care [] Spiritual counseling [] Bereavement support [] Provided bereavement packet [] Provided Bible/devotional materials [] Provided toy/stuffed animal, coloring book to patient or family member [] Provided Communion [] Anointing/[place] [] Salvation [x] Completed spiritual assessment [] Other: Impact on Illness or Injury [] Angry [] Fearful [] Anxious [] Often cries [] Exhaustion [] Unable to work [] Unable to attend pentecostal [] Unable to walk/stand [] Unable to read [] Unable to drive [] Unable to eat/drink [] Unable to sleep [] Unable to be with family [] Patient intubated [] Other: Summary Time spent with patient 5 min
[2023-02-23] MEDS: amlodipine 5 mg Tablet PO (09:56)
[2023-02-23] MEDS: pantoprazole DR 40 mg Tablet PO (09:56)
[2023-02-23] MEDS: FUROsemide 20 mg Tablet PO (09:56)
--- NOTE | 2023-02-23 11:30 | P.DS_ITS ---
Discharge Providers Date of Admission: 02/22/23 00:55 Date of Discharge: February 23, 2023 Attending Provider at Admission: Bettina Cleary MD Attending Provider at Discharge: Florentin Temple MD Primary Care Provider: Robert Mix MD Diagnoses at Discharge Discharge Diagnosis (1) Hypoxia: Status: Acute (2) Pneumonitis: Status: Acute (3) Hypercapnic respiratory failure, chronic: Status: Acute Reason for Visit Reason for Visit: sob, Hospital Course Hospital Course Hannah Albert is a 43 year old female with no known significant past medical history who presents to the emergency room with shortness of breath. Patient states that her symptoms started several months ago but over the past month have been progressively worsening. She states that she is dyspneic with minimal exertion, cannot walk from her bed to the doorway without getting short of breath. She denies any chest pain. She has longstanding chronic lower extremity edema for the past 19 years which appears to have worsened recently. She has been diagnosed with possible lymphedema and is supposed to wear compression stockings but it is hard for her to get those on therefore she does not wear it most of the times. She denies any cough or expectoration. Denies any recent fevers. She states that about a month ago she checked her oxygen saturations at work and this was 88% at rest. She estimates that she has been hypoxic much longer. She has daytime somnolence and frequent episodes of noisy breathing at night. She presents to the ER today as her family members noticed that she is getting much worse over the past month and has agreed to come in for evaluation. States that she did not get any evaluation for her chronic symptoms previously due to lack of insurance and difficulty affording care. Upon ER arrival she was noted to be hypoxic. ABG shows hypoxic hypercapnic respiratory failure which is currently well compensated, likely to be chronic in nature. CTA chest is negative for PE but shows B/L diffuse GGOs. She has not had any recent sick contacts. No recent history of travel. She has no known diagnosed history of COPD or emphysema. She is a daily smoker since the age of 14. She also vapes approximately twice a day. She has never needed inhalers before. This is a 43-year-old female, who presents [facility] for acute hypoxic hypercapnic respiratory failure, likely multifactorial from obesity hypoventilation syndrome, COPD exacerbation, some degree of fluid overload, from CHF, also found to have diffuse groundglass opacities in bilateral lungs. Patient was managed as inpatient received diuretic therapy, steroid therapy, antibiotic therapy, and overall clinically monitored. Respiratory viral panel was negative she remained afebrile discharged on a prednisone burst, albuterol, Advair, Levaquin for 5 remaining days for atypical infection such as atypical pneumonia. Given her CT scan showed bilateral diffuse groundglass opacities she needs a repeat CAT scan in 6 to 8 weeks to follow-up, to ensure resolution. She has component of pickwickian syndrome, obesity hypoventilation syndrome, she needs to follow with pulmonary in a month. She does have evidence of fluid overload, discharged on low-dose Lasix with potassium replacement therapy creatinine discharge was 0.7, needs to see primary care provider February 27 for recheck kidney function.. Patient is a chronic daily smoker and also vapes, she could have a component of hypersensitive pneumonitis, spent over 10 minutes discussing smoking cessation counseling, stopping vaping Physical Exam Const: COMMON NORMALS: no acute distress and patient oriented x3 Resp: COMMON NORMALS: normal respiratory effort, No retractions, No use of accessory muscles and clear to auscultation bilaterally AUSCULTATION: clear to auscultation bilaterally Cardio: COMMON NORMALS: regular rate, regular rhythm, S1 normal heart sound present and S2 normal heart sound present RATE: regular rate RHYTHM: regular rhythm HEART SOUNDS: S1 normal heart sound present and S2 normal heart sound present GI: COMMON NORMALS: Normal to inspection, nondistended, normoactive bowel sounds present and non-tender Extremity: COMMON NORMALS: no pedal edema Neuro: COMMON NORMALS: patient oriented x3 Psych: COMMON NORMALS: mental status grossly normal Discharge Data Studies Completed and Pending Completed Studies During Hospitalization Category Date Time Status CTA chest [CT angio chest PE protcl [id number]] Stat Cat Scan 02/21/23 20:28 Completed XR chest 1V portable [id number] Stat Exams 02/21/23 19:35 Completed CV. echo complete* [id number] Routine Ultrasound 02/22/23 00:58 Completed Pending at discharge Category Date Time Status Blood Cultures ([facility]) Routine Lab 02/21/23 23:07 Received Blood Cultures ([facility]) Routine Lab 02/21/23 23:11 Received Sputum Culture Stat Lab 02/22/23 07:54 Uncollected Radiology Impressions Chest X-Ray 02/21/23 19:35 IMPRESSION: 1. Diffuse ground-glass opacities suspected in both lungs. This could represent pulmonary edema, pneumonia, or hypersensitivity pneumonitis. Chest CTA 02/21/23 20:28 IMPRESSION: 1. No evidence for pulmonary embolus. 2. Mild diffuse ground-glass opacities in both lungs. This could represent pulmonary edema, atypical pneumonia, or hypersensitivity pneumonitis. 3. 2.9 cm indeterminate low-density left adrenal nodule. Non-emergent adrenal CT is recommended. (Reference: Kee) References: Kee BECKER, et al. Management of Incidental Adrenal Masses: A White Paper of the ACR Incidental Findings Committee. J Am Jessenia Radiol. 2017;14(8):6629-8019. Laboratory Results WBC 14.97 10^3/uL (3.29-11.43) H 02/23/23 05:40 RBC 5.40 10^6/uL (3.85-5.65) 02/23/23 05:40 Hgb 16.90 g/dL (11.27-16.99) 02/23/23 05:40 Hct 55.5 % (36-47) H 02/23/23 05:40 MCV 102.8 fl (85-98) H 02/23/23 05:40 MCH 31.3 pg (27-33) 02/23/23 05:40 MCHC 30.5 g/dL (30-55) 02/23/23 05:40 RDW 15.2 % (12.1-15.1) H 02/23/23 05:40 Plt Count 292 10^3/cmm (157-399) 02/23/23 05:40 MPV 9.7 fL (7.4-10.4) 02/23/23 05:40 Neut % (Auto) 88.9 % 02/23/23 05:40 Lymph % (Auto) 4.8 % 02/23/23 05:40 [place] % (Auto) 5.5 % 02/23/23 05:40 Eos % (Auto) 0.0 % 02/23/23 05:40 Baso % (Auto) 0.1 % 02/23/23 05:40 Neut # (Auto) 13.29 10^3/uL (1.8-7.7) H 02/23/23 05:40 Lymph # (Auto) 0.7 10^3/uL (0.8-4.8) L 02/23/23 05:40 [place] # (Auto) 0.8 10^3/uL (0.2-0.9) 02/23/23 05:40 Eos # (Auto) 0.0 10^3/uL (0.0-0.8) 02/23/23 05:40 Baso # (Auto) 0.0 10^3/uL (0.0-0.1) 02/23/23 05:40 Nucleated RBC % (auto) 0 % 02/23/23 05:40 Nucleated RBCs # 0.0 /100WBC 02/23/23 05:40 Specimen Type Arterial 02/21/23 19:35 Sample Site Radial, right 02/21/23 19:35 ABG pH 7.43 (7.35-7.45) 02/21/23 19:35 ABG pCO2 48.1 mmHg (35-45) H 02/21/23 19:35 ABG pO2 46.7 mmHg (80.0-100.0) L 02/21/23 19:35 ABG HCO3 32.2 mmol/L (22-26) H 02/21/23 19:35 ABG Base Excess 6.4 mmol/L (-2.0-2.0) H 02/21/23 19:35 Noel Test Pos 02/21/23 19:35 Hematocrit 52.1 % (37-47) H 02/21/23 19:35 Hgb O2 Saturation 77.3 % (95-100) L 02/21/23 19:35 Carboxyhemoglobin 11.9 %THgb (0.4-20.1) 02/21/23 19:35 Methemoglobin 0.1 % (0.4-1.5) L 02/21/23 19:35 Total Hemoglobin 17.0 g/dL (12-16) H 02/21/23 19:35 O2 Delivery Device Room air 02/21/23 19:35 Real Estate Administrator ID [email or web address] 02/21/23 19:35 Sodium 140 mmol/L (136-145) 02/23/23 05:40 Potassium 5.0 mmol/L (3.5-5.1) 02/23/23 05:40 Chloride 100 mmol/L (98-107) 02/23/23 05:40 Carbon Dioxide 34 mmol/L (22-29) H 02/23/23 05:40 Anion Gap 11.0 (5-19) 02/23/23 05:40 BUN 16 mg/dL (6-20) 02/23/23 05:40 Creatinine 0.7 mg/dL (0.5-0.9) 02/23/23 05:40 GFR Calculation 90.5 mL/min (90-130) 02/23/23 05:40 Glucose 110 mg/dL (65-115) 02/23/23 05:40 Estimat Average Glucose 123 02/21/23 19:40 Hemoglobin A1c 5.9 % (4.0-6.0) 02/21/23 19:40 Calculated Osmolality 292 mOsm/kg (285-295) 02/23/23 05:40 Calcium 9.3 mg/dL (8.5-10.5) 02/23/23 05:40 Total Bilirubin 0.2 mg/dL (0.15-1.2) 02/23/23 05:40 AST 28 U/L (0-32) 02/23/23 05:40 ALT 43 U/L (0-33) H 02/23/23 05:40 Alkaline Phosphatase 100 U/L (35-105) 02/23/23 05:40 Troponin T Baseline 11 ng/L (0-10) H 02/21/23 19:30 Troponin T 120 Minute 11.19 ng/L (0-10) H 02/21/23 21:25 Delta Troponin T 0.19 ABS# (0-10) 02/21/23 21:25 Troponin T Hi Sens 6Hr 7.98 ng/L (0-10) 02/22/23 01:40 Troponin T Hi Sens 6Hr Delta -3.02 ng/L (0-12) L 02/22/23 01:40 NT-Pro-B Natriuret Pep 196 pg/mL (0-125) H 02/21/23 19:30 Total Protein 6.9 g/dL (6.6-8.7) 02/23/23 05:40 Albumin 3.2 g/dL (3.5-5.2) L 02/23/23 05:40 Globulin 3.7 g/dL (1.3-4.6) 02/23/23 05:40 Procalcitonin 0.11 ng/mL (0-0.5) 02/22/23 01:40 TSH 0.89 uIU/mL (0.27-4.20) 02/22/23 01:40 Random Cortisol 12.73 ug/dL (2.47-19.5) 02/21/23 19:30 Nasal Influ A H1 2009 PCR Not detected (NOT DETECT) 02/22/23 15:57 Adenovirus (PCR) Not detected (NOT DETECT) 02/22/23 15:57 C. pneumoniae DNA (PCR) Not detected (NOT DETECT) 02/22/23 15:57 Coronavirus 229E (PCR) Not detected (NOT DETECT) 02/22/23 15:57 HIV 1&2 Ab & HIV 1 Ag Non-reactive (Non-Reactiv) 02/23/23 05:40 HIV 1&2 Antibody Non-reactive (Non-Reactiv) 02/23/23 05:40 Human Metapneumovir PCR Not detected (NOT DETECT) 02/22/23 15:57 Influenza A (H1) PCR Not detected (NOT DETECT) 02/22/23 15:57 Influenza A (H3) PCR Not detected (NOT DETECT) 02/22/23 15:57 Influenza Type A (PCR) Not detected (NOT DETECT) 02/22/23 15:57 Influenza Type B (PCR) Not detected (NOT DETECT) 02/22/23 15:57 M. pneumoniae (PCR) Not detected (NOT DETECT) 02/22/23 15:57 Parainfluenza 1 (PCR) Not detected (NOT DETECT) 02/22/23 15:57 Parainfluenza 2 (PCR) Not detected (NOT DETECT) 02/22/23 15:57 Parainfluenza 3 (PCR) Not detected (NOT DETECT) 02/22/23 15:57 Parainfluenza 4 (PCR) Not detected (NOT DETECT) 02/22/23 15:57 RSV Type A (PCR) Not detected (NOT DETECT) 02/22/23 15:57 RSV Type B (PCR) Not detected (NOT DETECT) 02/22/23 15:57 Entero/Rhino (PCR) Not detected (NOT DETECT) 02/22/23 15:57 SARS-CoV-2 (PCR) Not detected (NOT DETECT) 02/22/23 15:57 Vitals Last Vital Signs Temp 97.7 F 02/23/23 07:57 Pulse 94 02/23/23 07:57 Resp 18 02/23/23 07:57 BP 153/89 02/23/23 07:57 Pulse Ox 91 02/23/23 07:57 O2 Del Method Nasal Cannula 02/23/23 07:57 O2 Flow Rate 4 02/23/23 07:57 FiO2 5 02/21/23 21:58 Discharge Plan Discharge Patient Disposition: Home Condition: Stable Prescriptions: New levofloxacin 750 mg Tablet 750 mg PO BEDTIME 5 Days Qty: 5 0RF furosemide 20 mg Tablet 20 mg PO DAILY 30 Days Qty: 30 0RF albuterol sulfate 90 mcg/actuation HFA aerosol inhaler 1 inh inhalation Q6H PRN (Reason: shortness of breath or wheezing) Qty: 8.5 0RF potassium chloride [Klor-Con 10] 10 mEq tablet extended release 10 meq PO DAILY 30 Days Qty: 30 0RF amlodipine 5 mg Tablet 5 mg PO DAILY 30 Days Qty: 15 0RF fluticasone propion-salmeterol [Advair Diskus] 100-50 mcg/dose blister with device 1 inh inhalation BID Qty: 60 0RF prednisone 20 mg tablet 20 mg PO BID 5 Days Qty: 10 0RF No Action Unable to Assess Discharge Orders: Discharge Order (Routine); Ordered 02/23/23 Ordered By: Florentin Temple Referrals: Felipe Newton MD [Physician] - 1 month Robert Mix MD [Primary Care Provider] - Discharge Diet: Cardiac Discharge Activity: Resume usual activity Patient Instructions: Opioid Safety Activity Restrictions/Additional Instructions: - Please limit fluid intake between 1 to 2 L a day ?please take diuretics as prescribed, see your primary care provider on Sunday for recheck kidney function, your creatinine on discharge was 0.7, ? We discharged you on 3 to 4 L nasal cannula?please take steroid burst as prescribed, take antibiotics as prescribed, ?take antibiotics as prescribed ?see pulmonary critical care in 1 month ? Please stop smoking, stop vaping Discharge Attestations Time Spent in Discharge Care*: greater than 30 min Time Spent in Smoking Cessation: more than 10 minutes Quality Metrics Clinical Quality Measures [ No reported AMI, CVA or VTE this stay] Coding Level of Care Code 10901 Total time (in minutes) for Discharge: 45 Diagnoses Hypoxia R09.02 Pneumonitis J98.4 Hypercapnic respiratory failure, chronic J96.12
== END 2023-02-23 16:56 | disposition home or self-care (01) | DRG 189 ==
LOC: ER 20:33 → MEDSURG 02-22 00:56
PROVIDERS: Admitting Provider Student in an Organized Health Care Education/Training Program; Emergency Provider Family Medicine; Family Provider Family Medicine; PCP Family Medicine; Visit Provider Family Medicine
DX: J96.22 Acute and chronic respiratory failure with hypercapnia (principal); E66.2 Morbid (severe) obesity with alveolar hypoventilation; Z68.44 Body mass index [BMI] 60.0-69.9, adult; J67.9 Hypersensitivity pneumonitis due to unspecified organic dust; J96.21 Acute and chronic respiratory failure with hypoxia; F17.290 Nicotine dependence, other tobacco product, uncomplicated; E87.70 Fluid overload, unspecified; F17.210 Nicotine dependence, cigarettes, uncomplicated; I89.0 Lymphedema, not elsewhere classified; Z59.6 Low income
CPT/HCPCS: 36415; 36600; 71045; 71275; 80053; 82533; 82805; 83036; 83880; 84145; 84443; 84484; 85025; 87040; 87486; 87581; 87633; 87635; 87806; 93005; 93306; 94060; 94640; 94760; 96372; 96374; 96375; 99285; J1650; J1940; J1956; J2920; J2930; J7626; Q9967

== ENCOUNTER 2023-05-09 11:00 | Outpatient (CLI) | payer OTHER, SELFPAY | END 2023-05-09 11:01 | disposition home or self-care (01) | LOC: SLEEP 05-14 08:24 | PROVIDERS: Family Provider Family Medicine; PCP Family Medicine; Visit Provider Internal Medicine Pulmonary Disease | DX: G47.19 Other hypersomnia (principal); R06.83 Snoring | CPT/HCPCS: 94762 ==

== ENCOUNTER 2023-06-06 09:02 | Outpatient (CLI) | payer OTHER, SELFPAY ==
[2023-06-06 09:29] VITALS: PULSE 102; RESP 18; O2SAT 95
[2023-06-06] MEDS: albuterol 2.5 mg/3 mL Neb INHALATION (09:29)
[2023-06-06 09:33] VITALS: PULSE 98
== END 2023-06-06 09:03 | disposition home or self-care (01) ==
PROVIDERS: Family Provider Family Medicine; PCP Family Medicine; Visit Provider Internal Medicine Pulmonary Disease
DX: R06.02 Shortness of breath (principal)
CPT/HCPCS: 94060; 94618; 94726; 94729; J7613

== ENCOUNTER 2023-07-05 08:21 | Outpatient (CLI) | payer OTHER, SELFPAY ==
--- NOTE | 2023-07-05 08:29 | CT_ITS ---
WS: [id number] CT adrenals with and without contrast. HISTORY: MASS OF LEFT ADRENAL GLAND Noncontrast 5 mm imaging is performed through the abdomen with attention to the adrenal glands. Addit ional 1 minute and 15 minute delayed images are then performed through the adrenal glands. CONTRAST: Omnipaque 300; 95 mL IV. DLP: 2806.[address] scans at [facility] use at least one of these dose optimization techniques: automated e xposure control; mA and/or kV adjustment per patient size (includes targeted exams where dose is matc hed to clinical indication); or iterative reconstruction. COMPARISON: 09/04/2013, 02/21/2023 Lower thorax: Dependent changes at the lung bases. Heart is normal size. Enlarged liver with diffuse hepatic steatosis. Negative gallbladder. Normal spleen. Normal pancreas. No renal obstruction. Mild atherosclerosis aorta. ADRENAL GLANDS. RIGHT: Normal. No mass or enlargement. LEFT: Lobulated mass in the LEFT adrenal gland measures 3.1 x 2.0 cm. This a small well-circumscribed hypoechoic mass measures 2.2 x 2.3 cm. Hounsfield units on the noncontrast imaging are slightly elev ated to 25. There is mild enhancement with little washout. Hounsfield units cannot confirm adenoma. T he absolute washout and relative washout values cannot confirm this is an adenoma. Favor this is a be nign lesion as it has been present since 09/04/2013 with only slight increase in size. Right kidney: Normal. Left kidney: Normal. Aorta: Normal. GI tract: Stomach is negative. Proximal small bowel and colon are negative. No adenopathy or free fluid. Abdominal wall: No hernia. Visualized osseous structures: Unremarkable. CT/CT abdomen wo/w con [id number] IMPRESSION: 1. Well-circumscribed solid LEFT adrenal mass measures 3.1 x 2.0 cm. Hounsfiel d units with relative and absolute washout values cannot confirm this is a henna gn adenoma. Favor benign adenoma as this has been present since 2013 with only minimal increase in size. This may be a lipid poor adenoma. With no history of malignancy statistically this is a benign adrenal mass. Clinically if further e valuation is thought necessary MRI may provide additional information. 2. Marked hepatic enlargement with hepatic steatosis.
[2023-07-05] MEDS: iohexol 350 mg/mL 500 mL Btl (per mL) IV (08:51)
== END 2023-07-05 08:22 | disposition home or self-care (01) ==
LOC: RAD 08:23
PROVIDERS: Family Provider Family Medicine; PCP Family Medicine; Visit Provider Family Medicine
DX: E27.8 Other specified disorders of adrenal gland (principal); K76.0 Fatty (change of) liver, not elsewhere classified
CPT/HCPCS: 74170; Q9967

== ENCOUNTER 2023-08-02 14:30 | Outpatient (CLI) | payer OTHER, SELFPAY | END 2023-08-02 14:31 | disposition home or self-care (01) | LOC: SLEEP 08-06 08:58 | PROVIDERS: Family Provider Family Medicine; PCP Family Medicine; Visit Provider Internal Medicine Pulmonary Disease | DX: G47.33 Obstructive sleep apnea (adult) (pediatric) (principal); G47.36 Sleep related hypoventilation in conditions classified elsewhere | CPT/HCPCS: G0399 ==

== ENCOUNTER 2023-09-28 19:06 | Emergency (ER) | payer OTHER, SELFPAY ==
[2023-09-28 19:24] VITALS: BP 163/107; PULSE 127; RESP 20; TEMP 36.8; O2SAT 96; BMI 60.2
--- NOTE | 2023-09-28 19:31 | XRR_ITS ---
PROCEDURE INFORMATION: Exam: XR Chest Exam date and time: 09/28/2023 7:46 PM Age: 43 years old Clinical indication: Shortness of breath; Patient HX: SOB TECHNIQUE: Imaging protocol: Radiologic exam of the chest. Views: 1 view. COMPARISON: CT angio chest PE protcl [id number] 02/21/2023 9:42 PM FINDINGS: Lungs: Subtle interstitial markings with peribronchial cuffing throughout both lungs are nonspecific but can be seen the setting of bronchitis, pulmonary vascular congestion, viral infection and small-vessel airways disease. Pleural spaces: Unremarkable. No pleural effusion. No pneumothorax. Heart/Mediastinum: Unremarkable. No cardiomegaly. Bones/joints: Unremarkable. XR/XR chest 1V portable [id number] IMPRESSION: Subtle interstitial markings with peribronchial cuffing throughout both lungs are nonspecific but can be seen the setting of bronchitis, pulmonary vascular congestion, viral infection and small-vessel airways disease.
--- NOTE | 2023-09-28 19:39 | ECG_ITS ---
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 Measurements Intervals [place] Rate: 108 P: 49 [place]: 165 QRS: -28 QRSD: 86 T: 31 QT: 338 QTc: 454 Interpretive Statements SINUS TACHYCARDIA BORDERLINE LEFT AXIS DEVIATION [QRS AXIS < -20] ABNORMAL RHYTHM ECG No previous ECG available for comparison Electronically Signed On 09-29-2023 6:59:40 CDT by Kehinde Sanford M.D. [email or web address] county hospitalDomobregency hospital cleveland east.[email or web address]/store/OM/[id number]
[2023-09-28 20:00] LABS: Basophils % 0.3 %; Eosinophils # 0.2 10^3/uL (0.0-0.8); Eosinophils % 1.4 %; Hematocrit 47.8 % (36-47); Lymphocytes # 2.3 10^3/uL (0.8-4.8); Lymphocytes % 14.4 %; Mean Corpuscular HGB Conc 33.1 g/dL (30-55); Mean Corpuscular Volume 96.8 fl (85-98); Mean Platelet Volume 9.7 fL (7.4-10.4); Monocytes # 0.8 10^3/uL (0.2-0.9); Monocytes % 4.7 %; Neutrophils # 12.58 10^3/uL (1.8-7.7); Neutrophils % 78.8 %; Nucleated Red Blood Cells % 0 %; Platelet Count 418 10^3/cmm (157-399); Red Blood Count 4.94 10^6/uL (3.85-5.65); Red Cell Distribution Width 12.5 % (12.1-15.1); White Blood Count 15.97 10^3/uL (3.29-11.43)
[2023-09-28 20:02] LABS: ABG PCO2 29.2 mmHg (35-45); Alveolar-Arterial Oxygen Gradi 4.8 mmHg (5-10); Arterial Blood Gas Hematocrit 49.4 % (37-47); Base Excess ABG 6.7 mmol/L (-2.0-2.0); Blood Gas Allen Test Pos; Blood Gas Operator Identificat CL; Blood Gas Sample Site Radial, right; Blood Gas Sample Type Arterial; Carboxyhemoglobin 1.4 %THgb (0.4-20.1); HCO3 ABG 27.7 mmol/L (22-26); HGB O2 Sat 95.2 % (95-100); Methemoglobin < 0.0 % (0.4-1.5); Oxygen Saturation ABG 96.4; PO2 ABG 75.2 mmHg (80.0-100.0); Potassium Level - ABG 4.1 mmol/L (3.5-5.0); Total Hemoglobin 16.1 g/dL (12-16)
[2023-09-28 20:04] LABS: ABG PH Result 7.59 (7.35-7.45)
[2023-09-28 20:14] LABS: Troponin(5th) Baseline 7 ng/L (0-10)
[2023-09-28 20:17] LABS: Lactic Sepsis W/Reflex 2.6 mmol/L (0.5-2.2)
[2023-09-28 20:21] LABS: Alanine Aminotransferase 21 U/L (0-33); Albumin Level 4.1 g/dL (3.5-5.2); Alkaline Phosphatase 105 U/L (35-105); Anion Gap 18.8 (5-19); Aspartate Amino Transferase 19 U/L (0-32); Blood Urea Nitrogen 13 mg/dL (6-20); C Reactive Protein 24.5 mg/L (0.0-4.9); Calcium 9.3 mg/dL (8.5-10.5); Carbon Dioxide 27 mmol/L (22-29); Chloride 96 mmol/L (98-107); Creatinine Clr Calc Pharmacy 162.7898; Globulin 3.1 g/dL (1.3-4.6); Glomerular Filtration Rate 67.7 mL/min (90-130); Glucose 146 mg/dL (65-115); Osmolality Calculated 289 mOsm/kg (285-295); Potassium 3.8 mmol/L (3.5-5.1); Sodium 138 mmol/L (136-145); Total Bilirubin 0.4 mg/dL (0.15-1.2); Total Protein 7.2 g/dL (6.6-8.7)
[2023-09-28 20:35] VITALS: BP 138/93; PULSE 113; RESP 24; O2SAT 91
[2023-09-28 20:52] LABS: Bilirubin Urine Negative (Negative); Blood Urine 2+ (Negative); Glucose Urine UA Negative (Normal); Ketones Urine Negative (Negative); Leukocyte Esterase Urine Negative (Negative); Nitrate Urine Negative (Negative); Protein Urine 2+ (Negative); Specific Gravity, Urine 1.017 (1.005-1.030); Urine Appearance Clear (CLEAR); Urine Color Yellow (Yellow)
[2023-09-28 20:54] LABS: Bacteria Urine None Seen /hpf; Hyaline Casts Urine 4.11 /lpf; Squamous Epithelial Cell Urine 0-5 /hpf (0-5); WBC Urine 0-5 /hpf (0-5)
--- NOTE | 2023-09-28 20:58 | CTR_ITS ---
PROCEDURE INFORMATION: Exam: CTA Chest With Contrast Exam date and time: 09/28/2023 9:17 PM Age: 43 years old Clinical indication: Patient HX: Hypoxemia with tachycardia. History of copd. ; Additional info: Hypoxemia, tachycardia TECHNIQUE: Imaging protocol: Computed tomographic angiography of the chest with contrast. Exam focused on the arteries. 3D rendering (Not supervised by radiologist): MIP and/or 3D reconstructed images were created by the technologist. Radiation optimization: All CT scans at this facility use at least one of these dose optimization techniques: automated exposure control; mA and/or kV adjustment per patient size (includes targeted exams where dose is matched to clinical indication); or iterative reconstruction. Contrast material: OMNI 350; Contrast volume: 61 ml; Contrast route: INTRAVENOUS (IV); COMPARISON: CT angio chest PE protcl [id number] 02/21/2023 9:42 PM RADIATION DOSE METRICS: Total DLP (mGy-cm): 485.1 FINDINGS: Pulmonary arteries: No pulmonary emboli. Aorta: Unremarkable. No aortic aneurysm. No aortic dissection. Lungs: No focal consolidations. Pleural spaces: Unremarkable. No pneumothorax. No pleural effusion. Heart: Unremarkable. No cardiomegaly. No pericardial effusion. Lymph nodes: Unremarkable. No enlarged lymph nodes. Liver: The liver is diffusely low in attenuation consistent with hepatic steatosis. Adrenal glands: There is a 2.2 cm, previously 2.5 cm, rounded hypodense lesion in the left adrenal gland measuring 24 Hounsfield units. This is indeterminate but given its stability over nearly 1 year this is thought likely to represent a benign lipid poor adrenal adenoma. Bones/joints: Unremarkable. No acute fracture. Soft tissues: There is a sebaceous cyst in the subcutaneous tissue of the midline upper back measuring up to 2.[address]/CT angio chest PE protcl [id number] IMPRESSION: 1. No pulmonary emboli. 2. No focal consolidations.
--- NOTE | 2023-09-28 20:58 | ED_ITS ---
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 Says much worse this afternoon. She says she has been following with issues with this with her PCP who is wanting to repeat a CT here soon. She says she has a pain in the center of her chest and on the right side of her chest. She has a history of anxiety but does not think that is what this is. She is tachycardic and hypertensive on presentation. She is nonhypoxic. Review of Systems 2 Narrative: Constitutional symptoms: Negative except as documented in HPI. Skin symptoms: Negative except as documented in HPI. Eye symptoms: Negative except as documented in HPI. ENMT symptoms: Negative except as documented in HPI. Respiratory symptoms: Negative except as documented in HPI. Cardiovascular symptoms: Negative except as documented in HPI. Gastrointestinal symptoms: Negative except as documented in HPI. Genitourinary symptoms: Negative except as documented in HPI. Musculoskeletal symptoms: Negative except as documented in HPI. Neurologic symptoms: Negative except as documented in HPI. Psychiatric symptoms: Negative except as documented in HPI. Endocrine symptoms: Negative except as documented in HPI. PFSH ED 2 PFSH: Social History Smoking and tobacco/nicotine status: current every day tobacco/nicotine user cigarettes Packs smoked per day: 2 Years cigarettes smoked: 29 [ Other cigarette details: Started at age 14] Physical Exam 2 Narrative: EXAM NARRATIVE: General: Alert, no acute distress. Skin: Warm, dry. Head: Normocephalic, atraumatic. Neck: Supple, trachea midline. Eye: Extraocular movements are intact. Ears, nose, mouth and throat: mucosa moist. Cardiovascular: Regular, Normal peripheral perfusion. Respiratory: Lungs are clear to auscultation, respirations are non-labored, breath sounds are equal, Symmetrical chest wall expansion. Gastrointestinal: Soft, Nontender, Non distended Musculoskeletal: Normal ROM, no deformity. Neurological: Alert and oriented, No focal neurological deficit observed. Psychiatric: Cooperative, appropriate mood & affect. Course 2 Vital Signs: Vital signs: Vital Signs Temperature 98.3 F 09/28/23 19:24 Pulse Rate 108 H 09/28/23 21:33 Respiratory Rate 16 09/28/23 21:33 Blood Pressure 131/71 09/28/23 21:33 Pulse Oximetry 92 09/28/23 21:33 Oxygen Delivery Me thod Room Air 09/28/23 21:33 MDM - SOB/Dyspnea Medical Decision Making Differential diagnosis for patient with shortness of breath includes but is not limited to and based on the above HPI, review of systems and physical exam: Pneumonia. Bronchitis. Asthma or COPD with acute exacerbation. Acute coronary syndrome / VT. Pulmonary embolism. Anxiety. Congestive heart failure. Viral infections including influenza and Covid-19. Atrial fibrillation. Anxiety. Pleural effusion. Pneumothorax. Workup: Lab work, chest X-ray and EKG ordered to evaluate, rule in and rule out above pathologies EKG: Time 1938. Rate 108. sinus tachycardia, No ST-T changes, no ectopy, normal ME & QRS intervals, This was reviewed and interpreted by myself the ER physician at 194 Chest x-ray: No acute process. No infiltrate. No pneumothorax. This was reviewed and interpreted by myself the ER physician. Lab Review: Laboratory results were reviewed and interpreted by myself the emergency room physician. Some leukocytosis with a white count of 16. Hemoglobin is normal at 15.8. Platelets are slightly high at 418. Renal function is normal at 13 and 0.9. ABG: pH is 7.59, pCO2 is 29. pO2 is 75. Definitely has some tachypnea and hypocapnia which would point towards anxiety CTA of the chest with PE protocol: No infiltrates. No effusions. No pulmonary emboli. This was reviewed and interpreted by myself the emergency room physician. I also reviewed the radiology report. I reviewed the patient's medical record. Reexamination: Patient remained stable. No hypoxemia. Heart rate has come down. No increased work of breathing. No altered mental status. No focal motor deficits. Assessment and plan: COPD exacerbation Dyspnea ?Decadron and breathing treatment in the emergency room. I do believe this is likely with anxiety but patient does not. I have not found anything else acute and a very extensive workup including a CTA. - Discharged home - Discussed findings and plan with patient. Answered any questions. - All laboratory values were reviewed and interpreted personally by myself, the ER physician - All imaging was reviewed and interpreted personally by myself, the ER physician. - Evaluation and treatment of this problem were appropriate in the emergency setting Lab Data 09/28/23 19:48 09/28/23 19:48 Labs/Radiology: Radiology Impressions Chest X-Ray 09/28/23 19:31 IMPRESSION: Subtle interstitial markings with peribronchial cuffing throughout both lungs are nonspecific but can be seen the setting of bronchitis, pulmonary vascular congestion, viral infection and small-vessel airways disease. Chest CTA 09/28/23 20:58 IMPRESSION: 1. No pulmonary emboli. 2. No focal consolidations. Laboratory Results WBC 15.97 10^3/uL (3.29-11.43) H 09/28/23 19:48 RBC 4.94 10^6/uL (3.85-5.65) 09/28/23 19:48 Hgb 15.80 g/dL (11.27-16.99) 09/28/23 19:48 Hct 47.8 % (36-47) H 09/28/23 19:48 MCV 96.8 fl (85-98) 09/28/23 19:48 MCH 32.0 pg (27-33) 09/28/23 19:48 MCHC 33.1 g/dL (30-55) 09/28/23 19:48 RDW 12.5 % (12.1-15.1) 09/28/23 19:48 Plt Count 418 10^3/cmm (157-399) H 09/28/23 19:48 MPV 9.7 fL (7.4-10.4) 09/28/23 19:48 Neut % (Auto) 78.8 % 09/28/23 19:48 Lymph % (Auto) 14.4 % 09/28/23 19:48 Stan[place] % (Auto) 4.7 % 09/28/23 19:48 Eos % (Auto) 1.4 % 09/28/23 19:48 Baso % (Auto) 0.3 % 09/28/23 19:48 Neut # (Auto) 12.58 10^3/uL (1.8-7.7) H 09/28/23 19:48 Lymph # (Auto) 2.3 10^3/uL (0.8-4.8) 09/28/23 19:48 [place] # (Auto) 0.8 10^3/uL (0.2-0.9) 09/28/23 19:48 Eos # (Auto) 0.2 10^3/uL (0.0-0.8) 09/28/23 19:48 Baso # (Auto) 0.0 10^3/uL (0.0-0.1) 09/28/23 19:48 Nucleated RBC % (auto) 0 % 09/28/23 19:48 Nucleated RBCs # 0.0 /100WBC 09/28/23 19:48 Specimen Type Arterial 09/28/23 07:50 Sample Site Radial, right 09/28/23 07:50 ABG pH 7.59 (7.35-7.45) H* 09/28/23 07:50 ABG pCO2 29.2 mmHg (35-45) L 09/28/23 07:50 ABG pO2 75.2 mmHg (80.0-100.0) L 09/28/23 07:50 ABG HCO3 27.7 mmol/L (22-26) H 09/28/23 07:50 ABG O2 Saturation 96.4 09/28/23 07:50 ABG Base Excess 6.7 mmol/L (-2.0-2.0) H 09/28/23 07:50 Noel Test Pos 09/28/23 07:50 A-a O2 Gradient 4.8 mmHg (5-10) L 09/28/23 07:50 Hematocrit 49.4 % (37-47) H 09/28/23 07:50 Hgb O2 Saturation 95.2 % (95-100) 09/28/23 07:50 Carboxyhemoglobin 1.4 %THgb (0.4-20.1) 09/28/23 07:50 Methemoglobin < 0.0 % (0.4-1.5) L 09/28/23 07:50 Total Hemoglobin 16.1 g/dL (12-16) H 09/28/23 07:50 Sodium 140.0 mmol/L (131-143) 09/28/23 07:50 Potassium 4.1 mmol/L (3.5-5.0) 09/28/23 07:50 Glucose 144.0 mg/dL (70-115) H 09/28/23 07:50 Ionized Calcium 1.0 mmol/L (1.1-1.4) L 09/28/23 07:50 O2 Delivery Device None 09/28/23 07:50 Professional Housing Consultant ID Cl 09/28/23 07:50 Sodium 138 mmol/L (136-145) 09/28/23 19:48 Potassium 3.8 mmol/L (3.5-5.1) 09/28/23 19:48 Chloride 96 mmol/L (98-107) L 09/28/23 19:48 Carbon Dioxide 27 mmol/L (22-29) 09/28/23 19:48 Anion Gap 18.8 (5-19) 09/28/23 19:48 BUN 13 mg/dL (6-20) 09/28/23 19:48 Creatinine 0.9 mg/dL (0.5-0.9) 09/28/23 19:48 GFR Calculation 67.7 mL/min (90-130) L 09/28/23 19:48 Glucose 146 mg/dL (65-115) H 09/28/23 19:48 Calculated Osmolality 289 mOsm/kg (285-295) 09/28/23 19:48 Lactic Acid 2.6 mmol/L (0.5-2.2) H 09/28/23 19:48 Calcium 9.3 mg/dL (8.5-10.5) 09/28/23 19:48 Total Bilirubin 0.4 mg/dL (0.15-1.2) 09/28/23 19:48 AST 19 U/L (0-32) 09/28/23 19:48 ALT 21 U/L (0-33) 09/28/23 19:48 Alkaline Phosphatase 105 U/L (35-105) 09/28/23 19:48 Troponin T Baseline 7 ng/L (0-10) 09/28/23 19:48 C-Reactive Protein 24.5 mg/L (0.0-4.9) H 09/28/23 19:48 Total Protein 7.2 g/dL (6.6-8.7) 09/28/23 19:48 Albumin 4.1 g/dL (3.5-5.2) 09/28/23 19:48 Globulin 3.1 g/dL (1.3-4.6) 09/28/23 19:48 Urine Color Yellow (Yellow) 09/28/23 20:45 Urine Appearance Clear (CLEAR) 09/28/23 20:45 Urine pH 6.0 (5-7) 09/28/23 20:45 Ur Specific [place] 1.017 (1.005-1.030) 09/28/23 20:45 Urine Protein 2+ (Negative) A 09/28/23 20:45 Urine Glucose (UA) Negative (Normal) 09/28/23 20:45 Urine Ketones Negative (Negative) 09/28/23 20:45 Urine Blood 2+ (Negative) A 09/28/23 20:45 Urine Nitrate Negative (Negative) 09/28/23 20:45 Urine Bilirubin Negative (Negative) 09/28/23 20:45 Urine Urobilinogen 1.0 mg/dL (Negative) 09/28/23 20:45 Ur Leukocyte Esterase Negative (Negative) 09/28/23 20:45 Urine RBC 6-10 /hpf (0-2) 09/28/23 20:45 Urine WBC 0-5 /hpf (0-5) 09/28/23 20:45 Ur Squamous Epith Cells 0-5 /hpf (0-5) 09/28/23 20:45 Amorphous Sediment Not Reportable 09/28/23 20:45 Urine Bacteria None seen /hpf (NONE) 09/28/23 20:45 Hyaline Casts 4.11 /lpf 09/28/23 20:45 All radiology interpretation(s) finalized by discharge Discharge Plan Discharge Patient Disposition: Home Clinical Impression: Acute exacerbation of chronic obstructive airways disease Condition: Stable Prescriptions: New prednisone 20 mg tablet 60 mg PO DAILY Qty: 20 0RF Rx Instructions: 3 tabs (60 mg) x 3 days. 2 tabs (40 mg) x 3 days. 1 tab (20 mg) x 3 days. 1/2 tab (10 mg) x 4 days No Action varenicline 0.5 mg (11)- 1 mg (42) tablets,dose pack See Rx Instructions PO PER PKG DIR Rx Instructions: PO PER PKG DIR Spiriva Respimat 2.5 mcg/actuation mist 2 puff inhalation DAILY Qty: 4 3RF albuterol sulfate 90 mcg/actuation HFA aerosol inhaler 1 inh inhalation Q6H PRN (Reason: shortness of breath or wheezing) Qty: 8.5 0RF Advair Diskus 100-50 mcg/dose blister with device 1 inh inhalation BID Qty: 60 0RF Hold Instructions: Doctor's Order Discharge Orders: Discharge ED (Routine); Ordered 09/28/23 Ordered By: Pat Lynch Referrals: Robert Mix MD [Primary Care Provider] - Discharge Diet: Usual diet Discharge Activity: Increase activity as tolerated Patient Instructions: Dyspnea (ED) Activity Restrictions/Additional Instructions: Thank you for choosing [facility] for your healthcare needs today. Please realize this is an emergency room and that we are providing you with a medical screening exam and this may not be complete and all inclusive of all the testing and or work up that you may need to determine your ailment or severity of your illness. You have been screened and evaluated and felt safe for discharge. Health conditions do change or evolve sometimes and as such it is important that you follow up with your Primary Doctor to be re checked, 3-5 days is a general good time frame for follow up. 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
[2023-09-28] MEDS: iohexol 350 mg/mL 500 mL Btl (per mL) IV (21:19)
--- NOTE | 2023-09-28 21:32 | ECG_ITS ---
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 Measurements Intervals [place] Rate: 109 P: 34 [place]: 158 QRS: -24 QRSD: 86 T: 16 QT: 341 QTc: 461 Interpretive Statements SINUS TACHYCARDIA BORDERLINE LEFT AXIS DEVIATION [QRS AXIS < -20] Compared to ECG 09/28/2023 19:39:35 No significant changes Electronically Signed On 09-29-2023 7:00:37 CDT by Kehinde Sanford M.D. [email or web address] [email or web address] behavioral healthcare of mississippiLeadiDcleveland clinic [email or web address].[email or web address]/store/[id number]
[2023-09-28 21:33] VITALS: BP 131/71; PULSE 108; RESP 16; O2SAT 92
[2023-09-28 21:40] LABS: Reflex Lactate Order REFLEX LACTIC ORDERD
[2023-09-28] MEDS: dexamethasone 10 mg/mL INJ IVP (22:04)
[2023-09-28] MEDS: albuterol 2.5 mg/3 mL Neb INHALATION (22:10)
[2023-09-28 22:14] VITALS: PULSE 97; RESP 18; O2SAT 97
[2023-09-28 22:38] VITALS: BP 140/94; PULSE 109; RESP 16; TEMP 36.8; O2SAT 95
== END 2023-09-28 22:39 | disposition home or self-care (01) ==
PROVIDERS: Emergency Provider Emergency Medicine; PCP Family Medicine
DX: J44.1 Chronic obstructive pulmonary disease with (acute) exacerbation (principal); R00.0 Tachycardia, unspecified; F17.210 Nicotine dependence, cigarettes, uncomplicated
CPT/HCPCS: 36415; 36600; 71045; 71275; 80051; 80053; 81001; 82330; 82805; 83605; 84484; 85025; 86140; 87040; 93005; 94640; 96374; 99285; J1100; J7613; Q9967

== ENCOUNTER 2024-03-21 12:39 | Outpatient (CLI) | payer OTHER, SELFPAY ==
--- NOTE | 2024-03-21 12:44 | MM_ITS ---
WS: [id number] Bilateral screening 3D tomosynthesis digital mammogram, 03/21/2024 12:46 PM Clinical Data: SCREENING Comparison: 06/04/2013 Findings: No spiculated masses or clustered calcifications are seen. There are no secondary signs of carcinoma . MM/MM scr BI tomosynthesis [id number] Impression: Negative bilateral mammogram unchanged. Recommend annual screening mammograms. BIRADS: 1 - Negative. FOLLOW UP: 1 Year Follow-up DENSITY: The breasts are almost entirely fatty. The CAD hot box checker was used
== END 2024-03-21 12:40 | disposition home or self-care (01) ==
LOC: RAD 12:40
PROVIDERS: PCP Family Medicine; Visit Provider Family Medicine
DX: Z12.31 Encounter for screening mammogram for malignant neoplasm of breast (principal); R92.313 Mammographic fatty tissue density, bilateral breasts
CPT/HCPCS: 77063; 77067

== ENCOUNTER 2024-11-01 17:27 | Emergency (ER) | payer OTHER, SELFPAY ==
--- OUTSIDE RECORDS SUMMARY | 2024-11-01 17:33 | XMS_ITS | Clinical Summary ---
Author Organization [facility] Address [address] [place] [address] Phone Care Team Providers Care Shellfish Sorter Name Role Phone Robert Mix MD Primary Care Provider [phone] Allergies No known active allergies Medications crisaborole 2 % OintmentIndicati ons:Rash and nonspecific skin eruption Apply small amount on rash on upper chest BID until improved. 1 Each 0 07/15/2019 Active hydroCHLOROthiaz shara 25 mg tabletIndication s:Bilateral leg edema Take 0.5-1 Tablets (12.5-25 mg) by mouth daily. 30 Tablet 2 07/15/2019 Active acetaminophen (TYLENOL) 500 mg tablet Take 1,000 mg by mouth every 6 hours as needed. 07/14/2016 Active ibuprofen (MOTRIN) 800 mg tablet Take 800 mg by mouth every 6 hours as needed for Pain, Mild. 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 Gender Identity Not on file Sexual Orientation Not on file Last Filed Vital Signs Vital Sign Reading Time Taken Comments Blood Pressure 112/81 07/20/2020 4:08 PM CDT Pulse 105 07/20/2020 4:08 PM CDT Temperature 36.4 C (97.5 F) 07/20/2020 4:08 PM CDT Respiratory Rate 16 07/14/2016 8:22 PM CDT Oxygen Saturation - - Inhaled Oxygen Concentration - - Weight 120 kg (264 lb 9.6 oz) 07/20/2020 4:08 PM CDT Height 149.9 cm (4' 11 ) 07/20/2020 4:08 PM CDT Body Mass Index 53.44 07/20/2020 4:08 PM CDT Plan of Treatment Health Maintenance Due Date Last Done Comments DTAP/TDAP/TD VACCINES (1 - Tdap) 1997 HEPATITIS B VACCINES (1 of 3 - 19+ 3-dose series) 1997 HPV/Cotest (21-29) 1999 CERVICAL CANCER SCREENING 02/03/2008 HPV/Cotest (30-65) 02/03/2008 PAP SMEAR 02/03/2008 BREAST CANCER SCREENING 2018 COLORECTAL SCREENING 2023 Colorectal Cancer Screening 2023 FIT-DNA Q 3 years 2023 FIT/FOBT Q 1 year 2023 Flex Sig/CT Colonography Q 5 years 2023 INFLUENZA VACCINE (#1) 2024 HPV VACCINES Aged Out No longer eligi ble based on patient's age to complete this topic Insurance [facility] [employer] EPO Care Teams Shellfish Sorter Relationship Specialty Start Date End Date Robert Mix MD [address] [address] PCP - General Family Practice 07/14/16
--- OUTSIDE RECORDS SUMMARY | 2024-11-01 17:33 | XMS_ITS | Clinical Summary ---
Author Organization [facility] Address [address] [place] [address] Phone Care Team Providers Care Production Officer Name Role Phone Robert Mix MD Primary Care Provider [phone] Allergies No known active allergies Medications ibuprofen (MOTRIN) 800 mg tablet Take 800 mg by mouth every 6 hours as needed for Pain, Mild. Active acetaminophen (TYLENOL) 500 mg tablet Take 1,000 mg by mouth every 6 hours as needed. Active hydroCHLOROthiaz shara 25 mg tabletIndication s:Bilateral leg edema Take 0.5-1 Tablets (12.5-25 mg) by mouth daily. 30 Tablet 2 07/15/2019 Active crisaborole (Eucrisa) 2 % OintmentIndicati ons:Rash and nonspecific skin eruption Apply small amount on rash on upper chest BID until improved. 1 Each 07/15/2019 Active Active Problems No known active problems Immunizations Immunization Administration Dates Next Due Skin Test TB 07/20/2020 Social History Tobacco Use Types Packs/Day Years Used Date Smoking Tobacco: Every Day Cigarettes 1 15 Tobacco Cessation:Ready to Q uit: No; Counseling Given: Yes Alcohol Use Standard Drinks/Week Comments No 0 (1 standard drink = 0.6 oz pur e alcohol) Comments No Sex and Gender Information Value Date Recorded Sex Assigned at Not on file Legal Sex Female 3:07 PM CDT Gender Identity Not on file Sexual Orientation Not on file Last Filed Vital Signs Vital Sign Reading Time Taken Comments Blood Pressure 112/81 07/20/2020 4:08 PM CDT Pulse 105 07/20/2020 4:08 PM CDT Temperature 36.4 C (97.5 F) 07/20/2020 4:08 PM CDT Respiratory Rate 16 07/14/2016 8:22 PM CDT Oxygen Saturation 93% 07/20/2020 4:08 PM CDT Inhaled Oxygen Concentration - - Weight 120 [...] on patient's age to complete this topic Care Teams Production Officer Relationship Specialty Start Date End Date Robert Mix MD [address] [place] [phone] PCP - General Family Practice 07/14/16
[2024-11-01 17:37] VITALS: BP 168/106; PULSE 94; RESP 20; TEMP 36.7; O2SAT 94; BMI 61.7
--- NOTE | 2024-11-01 17:40 | ECG_ITS ---
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
--- NOTE | 2024-11-01 18:19 | XRR_ITS ---
PROCEDURE INFORMATION: Exam: XR Chest Exam date and time: 11/01/2024 6:28 PM Age: 44 years old Clinical indication: Pain; Chest pressure; Additional info: Cp TECHNIQUE: Imaging protocol: Radiologic exam of the chest. 358 image(s) are submitted. Views: 1 view. COMPARISON: CT angio chest PE protcl [id number] 09/28/2023 9:17 PM FINDINGS: Lungs: Unremarkable. No consolidation. Pleural spaces: Unremarkable. No pleural effusion. No pneumothorax. Heart/Mediastinum: Unremarkable. No cardiomegaly. Bones/joints: Unremarkable. XR/XR chest 1V portable [id number] IMPRESSION: No acute findings.
--- NOTE | 2024-11-01 18:42 | ED_ITS ---
HPI - Chest Pain 2 General: Chief Complaint: Chest Pain Stated Complaint: Tightness in chest Weakness headach dizzy Time Seen by Provider: 11/01/24 18:16 History of Present Illness: Patient is a 44-year-old female who presents to the emergency department with acute onset of chest tightness, left shoulder pain, shortness of breath, headache, weakness, fatigue, and dizziness. Symptoms began approximately one hour prior to arrival while the patient was sitting on her couch. She describes the chest discomfort as a pressure sensation localized to the left side that worsens with inspiration. She denies cough, fever, vomiting, or diarrhea. The patient reports a history of COPD and mentions previous hospitalization for COPD exacerbation approximately two years ago. 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 She denies any known history of coronary artery disease or cardiac stents. Patient reports chronic lower extremity edema but no recent changes in swelling. She denies wheezing with current symptoms. Related Data Home Medications ?Medication ?Instructions ?Recorded ?Confirmed varenicline tartrate 0.5 mg (11)-1 See Rx Instructions PO PER PKG DIR 05/18/23 07/18/23 mg (42) tablets in a dose pack Previous Rx's ?Medication ?Instructions ?Recorded albuterol sulfate 90 mcg/actuation 1 inh inhalation Q6 H PRN shortness 02/23/23 aerosol inhaler of breath or wheezing #8.5 g kishore fluticasone 100 mcg-salmeterol 50 1 inh inhalation BID #60 ea 02/23/23 mcg/dose blistr powdr for inhalation (Advair Diskus) Held on 07/18/23. Instructions: Doctor's Order tiotropium bromide 2.5 2 puff inhalation DAILY #4 g kishore 07/18/23 mcg/actuation mist for inhalation (Spiriva Respimat) prednisone 20 mg tablet 60 mg (3 x 20 mg) PO DAILY # 20 tabs 09/28/23 Allergies Allergy/AdvReac Type Severity Reaction Status Date / Time No Known Allergies Allergy Verified 09/28/23 19:29 [facility] ED 2 PFSH: Social History Smoking and tobacco/nicotine status: current every day tobacco/nicotine user cigarettes Packs smoked per day: 2 Years cigarettes smoked: 29 [ Other cigarette details: Started at age 14] Physical Exam 2 Const: GENERAL APPEARANCE: cooperative and anxious; not ill appearing and not frail appearing HENMT: COMMON NORMALS: normocephalic, atraumatic and Normal external nose present HEAD & SCALP: normocephalic and atraumatic FACE & SINUS: normal facial exam and face symmetric NOSE: Normal external nose present Eye: COMMON NORMALS: Equal, round and reactive pupils present and EOMs intact bilaterally PUPIL: Yes Equal, round and reactive pupils present Neck/C-Spine: GENERAL: Yes trachea midline Chest: CHEST: Yes Symmetrical chest wall rise Resp: COMMON NORMALS: normal respiratory effort, No retractions, No use of accessory muscles and clear to auscultation bilaterally AUSCULTATION: clear to auscultation bilaterally Cardio: COMMON NORMALS: regular rate and regular rhythm RATE: regular rate RHYTHM: regular rhythm GI: COMMON NORMALS: Normal to inspection, nondistended, normoactive bowel sounds present Extremity: GENERAL: Yes edema (With chronic stasis dermatitis) Neuro: LOULOU COMA SCALE: document GCS findings Loulou coma scale eye opening: Spontaneous [place] coma scale verbal response: Orientated [place] coma scale motor response: Obey commands Loulou coma scale total score: 15 S ENSORY EXAM: Yes extremities (intact) Psych: COMMON NORMALS: speech normal SPEECH: Yes normal speech Skin: COMMON NORMALS: no rashes or lesions noted GENERAL SKIN EXAM: no rashes or lesions noted Course 2 Vital Signs: Vital signs: Vital Signs Temperature 98.0 F 11/01/24 17:37 Pulse Rate 84 11/01/24 21:08 Respiratory Rate 18 11/01/24 21:08 Blood Pressure 160/98 11/01/24 21:08 Pulse Oximetry 96 11/01/24 21:08 Oxygen Delivery Me thod Room Air 11/01/24 18:48 MDM - Chest Pain Medical Decision Making Vitals are stable here. She is hypertensive, but this is improved after morphine. Blood pressure 115 systolic. CBC and BMP are normal. Chest x-ray is negative. Liver enzymes are not remarkable. BNP is not remarkable. Troponin is nondetectable. Pain is improved after morphine here. EKG shows no acute ST wave changes. She will be discharged. She is given a dose of dexamethasone here. She does have a history of COPD. She will use her inhaler for the next 2 days scheduled. She will return for any problems or worsening symptoms. Outpatient follow-up. Lab Data 11/01/24 18:44 11/01/24 18:44 Radiology Impressions Chest X-Ray 11/01/24 18:19 IMPRESSION: No acute findings. Laboratory Results WBC 11.30 10^3/uL (3.29-11.43) 11/01/24 18:44 RBC 4.77 10^6/uL (3.85-5.65) 11/01/24 18:44 Hgb 14.50 g/dL (11.27-16.99) 11/01/24 18:44 Hct 45.4 % (36-47) 11/01/24 18:44 MCV 95.2 fl (85-98) 11/01/24 18:44 MCH 30.4 pg (27-33) 11/01/24 18:44 MCHC 31.9 g/dL (30-55) 11/01/24 18:44 RDW 13.0 % (12.1-15.1) 11/01/24 18:44 Plt Count 380 10^3/cmm (157-399) 11/01/24 18:44 MPV 9.6 fL (7.4-10.4) 11/01/24 18:44 Neut % (Auto) 55.7 % 11/01/24 18:44 Lymph % (Auto) 34.1 % 11/01/24 18:44 Morgan % (Auto) 6.6 % 11/01/24 18:44 Eos % (Auto) 2.7 % 11/01/24 18:44 Baso % (Auto) 0.4 % 11/01/24 18:44 Neut # (Auto) 6.28 10^3/uL (1.8-7.7) 11/01/24 18:44 Lymph # (Auto) 3.9 10^3/uL (0.8-4.8) 11/01/24 18:44 Morgan # (Auto) 0.8 10^3/uL (0.2-0.9) 11/01/24 18:44 Eos # (Auto) 0.3 10^3/uL (0.0-0.8) 11/01/24 18:44 Baso # (Auto) 0.1 10^3/uL (0.0-0.1) 11/01/24 18:44 Nucleated RBC % (auto) 0 % 11/01/24 18:44 Nucleated RBCs # 0.0 /100WBC 11/01/24 18:44 Sodium 138 mmol/L (136-145) 11/01/24 18:44 Potassium 4.3 mmol/L (3.5-5.1) 11/01/24 18:44 Chloride 100 mmol/L (98-107) 11/01/24 18:44 Carbon Dioxide 27 mmol/L (22-29) 11/01/24 18:44 Anion Gap 15.3 (5-19) 11/01/24 18:44 BUN 16 mg/dL (6-20) 11/01/24 18:44 Creatinine 0.9 mg/dL (0.5-0.9) 11/01/24 18:44 GFR Calculation 67.4 mL/min (90-130) L 11/01/24 18:44 Glucose 97 mg/dL (65-115) 11/01/24 18:44 Calculated Osmolality 287 mOsm/kg (285-295) 11/01/24 18:44 Calcium 9.3 mg/dL (8.5-10.5) 11/01/24 18:44 Total Bilirubin 0.3 mg/dL (0.15-1.2) 11/01/24 18:44 AST 33 U/L (0-32) H 11/01/24 18:44 ALT 36 U/L (0-33) H 11/01/24 18:44 Alkaline Phosphatase 89 U/L (35-105) 11/01/24 18:44 Troponin T Baseline < 6 ng/L (0-10) 11/01/24 18:44 NT-Pro-B Natriuret Pep 171 pg/mL (0-125) H 11/01/24 18:44 Total Protein 7.6 g/dL (6.6-8.7) 11/01/24 18:44 Albumin 3.8 g/dL (3.5-5.2) 11/01/24 18:44 Globulin 3.8 g/dL (1.3-4.6) 11/01/24 18:44 All radiology interpretation(s) finalized by discharge Discharge Plan Discharge Patient Disposition: Home Clinical Impression: Chest pain Condition: Stable Prescriptions: No Action varenicline tartrate 0.5 mg (11)- 1 mg (42) tablets,dose pack See Rx Instructions PO PER PKG DIR Rx Instructions: PO PER PKG DIR Spiriva Respimat 2.5 mcg/actuation mist 2 puff inhalation DAILY Qty: 4 3RF albuterol sulfate 90 mcg/actuation HFA aerosol inhaler 1 inh inhalation Q6H PRN (Reason: shortness of breath or wheezing) Qty: 8.5 0RF Advair Diskus 100-50 mcg/dose blister with device 1 inh inhalation BID Qty: 60 0RF prednisone 20 mg tablet 60 mg PO DAILY Qty: 20 0RF Rx Instructions: 3 tabs (60 mg) x 3 days. 2 tabs (40 mg) x 3 days. 1 tab (20 mg) x 3 days. 1/2 tab (10 mg) x 4 days Discharge Orders: Discharge ED (Routine); Ordered 11/01/24 Ordered By: James Daniel Referrals: Robert Mix MD [Primary Care Provider, Family Practice] - 4-7 days Patient Instructions: Chest Pain (ED), Opioid Safety, Pain Management, Patient Portal & Matilde Instructions Activity Restrictions/Additional Instructions: Check your blood pressure twice daily. Report numbers to your doctor. Your blood pressure was high on arrival, and may need treatment if it stays up. Use your inhaler twice daily scheduled for the next 48 hours, then as needed. This may help with some of the shortness of breath. Return for any worsening pain, shortness of breath, fever, any other concerning symptoms. Print Language: [place]i Coding Level of Care Code ED Finish Remover for Ronak Peña
[2024-11-01] MEDS: morphine 4 mg/mL SDV 1 mL IVP (18:45)
[2024-11-01] MEDS: ondansetron 2 mg/ML SDV 2 mL 4 MG IVP (18:45)
[2024-11-01 18:48] VITALS: BP 170/134; PULSE 91; O2SAT 91
[2024-11-01 18:53] LABS: Hematocrit 45.4 % (36-47); Hemoglobin 14.50 g/dL (11.27-16.99); Mean Corpuscular HGB Conc 31.9 g/dL (30-55); Mean Corpuscular Hemoglobin 30.4 pg (27-33); Mean Corpuscular Volume 95.2 fl (85-98); Nucleated Red Blood Cells % 0 %; Platelet Count 380 10^3/cmm (157-399); Red Blood Count 4.77 10^6/uL (3.85-5.65); White Blood Count 11.30 10^3/uL (3.29-11.43)
[2024-11-01 19:17] LABS: Troponin(5th) Baseline < 6 ng/L (0-10)
[2024-11-01 19:27] LABS: Alanine Aminotransferase 36 U/L (0-33); Albumin Level 3.8 g/dL (3.5-5.2); Alkaline Phosphatase 89 U/L (35-105); Anion Gap 15.3 (5-19); Aspartate Amino Transferase 33 U/L (0-32); Blood Urea Nitrogen 16 mg/dL (6-20); Calcium 9.3 mg/dL (8.5-10.5); Carbon Dioxide 27 mmol/L (22-29); Chloride 100 mmol/L (98-107); Creatinine Clr Calc Pharmacy 165.2142; Globulin 3.8 g/dL (1.3-4.6); Glucose 97 mg/dL (65-115); NT Pro B Type Natriuretic Pept 171 pg/mL (0-125); Osmolality Calculated 287 mOsm/kg (285-295); Potassium 4.3 mmol/L (3.5-5.1); Sodium 138 mmol/L (136-145); Total Protein 7.6 g/dL (6.6-8.7)
--- NOTE | 2024-11-01 20:10 | ECG_ITS ---
[facility] Test Date: 2024-11-01 Pat Name: Hannah Howard Department: Room: Gender: Female Emergency Department Manager: : 1980 Requested By: James Metcalf Order Number: [id number] Reading MD: DENISE CRUZ Measurements Intervals [employer] Rate: 74 P: 25 [place]: 170 QRS: 56 QRSD: 90 T: 31 QT: 406 QTc: 452 Interpretive Statements SINUS RHYTHM WITH SINUS ARRHYTHMIA Compared to ECG 11/01/2024 17:40:03 No significant changes Electronically Signed On 11-03-2024 10:54:58 CDT by DENISE CRUZ [id number]
[2024-11-01 21:08] VITALS: BP 160/98; PULSE 84; RESP 18; O2SAT 96
== END 2024-11-01 21:09 | disposition home or self-care (01) ==
PROVIDERS: Emergency Provider Emergency Medicine; PCP Family Medicine
DX: R07.9 Chest pain, unspecified (principal); F17.210 Nicotine dependence, cigarettes, uncomplicated
CPT/HCPCS: 71045; 80053; 83880; 84484; 85025; 93005; 96374; 96375; 99285; J1100; J2270; J2405